=== PATIENT | female | born 1985 | race Caucasian/White ===

== ENCOUNTER 2018-12-05 15:14 | Inpatient (IN) | payer BC ==
[2018-12-05] MEDS ORDERED: Tranexamic Acid 1,000 MG in Sodium Chloride 0.9% 100 ML IV PRN (15:39)
[2018-12-05] MEDS ORDERED: Sodium Chloride 0.9% 2.5 ML Syringe FLUSH PRN (15:39)
[2018-12-05] MEDS ORDERED: Sodium Chloride 0.9% 10 ML Syringe FLUSH PRN (15:39)
[2018-12-05] MEDS ORDERED: Water For Irrigation,Sterile 1,000 ML Container IRR PRN (15:39)
[2018-12-05] MEDS ORDERED: Carboprost Tromethamine 250 MCG/1 ML Amp IM PRN (15:39)
[2018-12-05] MEDS ORDERED: Misoprostol 200 MCG Tab PO PRN (15:39)
[2018-12-05] MEDS ORDERED: Sodium Chloride 0.9% 10 ML SDV IV PRN (15:39)
[2018-12-05] MEDS ORDERED: Butorphanol 1 MG/ML SDV IVPUSH PRN (15:39)
[2018-12-05] MEDS ORDERED: Lidocaine 1% 50 ML MDV INJECT PRN (15:39)
[2018-12-05] MEDS ORDERED: Nalbuphine 10 MG/1 ML Vial IVPUSH PRN (15:39)
[2018-12-05] MEDS ORDERED: Methylergonovine 0.2 MG/1 ML Amp IM PRN (15:39)
[2018-12-05] MEDS ORDERED: Ondansetron 4 MG/2 ML SDV IVPUSH PRN (15:39)
[2018-12-05] MEDS ORDERED: Terbutaline 1 MG/ML SDV SUBCUT PRN (15:42)
[2018-12-05] MEDS ORDERED: Oxytocin/0.9 % Sodium Chloride 30 UNIT/500 ML BAG IV SCH ×2 (15:45)
[2018-12-05] MEDS: Lactated Ringers 1,000 ML IV SCH ×3 (16:09→19:55)
[2018-12-05] MEDS ORDERED: Ropivacaine HCl/PF 100 ML ONE (19:26)
--- NOTE | 2018-12-05 19:47 | PCM.PREANE ---
Preanesthetic Assessment - Anesthesia/Transfusion/Family Hx Anesthesia History: Prior Anesthesia Without Reaction Family History of Anesthesia Reaction: No Transfusion History: No Prior Transfusion(s) - Review of Systems General: No Symptoms Pulmonary: No Symptoms Cardiovascular: No Symptoms Gastrointestinal: No Symptoms Neurological: No Symptoms Other: Reports: None - Physical Assessment NPO Status Date: 12/05/18 NPO Status Time: 14:00 Height: 1.63 m Weight: 90.718 kg ASA Class: 1 Mental Status: Alert & Oriented x3 Dentition: Reports: Normal Dentition - Lab Values: Laboratory Last Values WBC 11.57 K/uL (4.0-11.0) H 12/05/18 15:55 RBC 3.62 M/uL (4.30-5.90) L 12/05/18 15:55 Hgb 10.9 g/dL (12.0-16.0) L 12/05/18 15:55 Hct 31.6 % (36.0-46.0) L 12/05/18 15:55 MCV 87.3 fL (80.0-98.0) 12/05/18 15:55 MCH 30.1 pg (27.0-32.0) 12/05/18 15:55 MCHC 34.5 g/dL (31.0-37.0) 12/05/18 15:55 RDW Std Deviation 43.6 fl (28.0-62.0) 12/05/18 15:55 RDW Coeff of Yocasta 14 % (11.0-15.0) 12/05/18 15:55 Plt Count 202 K/uL (150-400) 12/05/18 15:55 MPV 10.80 fL (7.40-12.00) 12/05/18 15:55 Nucleated RBC % 0.0 /100WBC 12/05/18 15:55 Nucleated RBCs # 0 K/uL 12/05/18 15:55 Membrane Rupture POSITIVE 12/05/18 14:55 Blood Type O POSITIVE 12/05/18 15:55 Antibody Screen NEGATIVE 12/05/18 15:55 - Allergies Allergies/Adverse Reactions: Allergies Allergy/AdvReac Type Severity Reaction Status Date / Time Sulfa (Sulfonamide Allergy Anaphylactic Verified 12/05/18 15:30 Antibiotics) Shock - Acknowledgements Anesthesia Type Planned: Epidural Pt an Appropriate Candidate for the Planned Anesthesia: Yes Alternatives and Risks of Anesthesia Discussed w Pt/Guardian: Yes Pt/Guardian Understands and Agrees with Anesthesia Plan: Yes PreAnesthesia Questionnaire HEENT History: Reports: Impaired Vision SANDER HAND History: Reports: - Infectious Disease History Infectious Disease History: Reports: Chicken Pox - Past Surgical History HEENT Surgical History: Reports: Oral Surgery - SUBSTANCE USE Smoking Status *Q: Former Smoker Recreational Drug Use History: No - HOME MEDS Home Medications: Home Meds PNV95/Ferrous Fumarate/FA [ Tablet] 1 tab PO DAILY 12/05/18 [History] - CURRENT (IN HOUSE) MEDS Current Meds: Current Medications Butorphanol Tartrate (Stadol) 1 mg IVPUSH Q1H PRN PRN Reason: Pain Carboprost Tromethamine (Hemabate Ds) 250 mcg IM ASDIRECTED PRN PRN Reason: Post Hemorrhage Tranexamic Acid 1,000 mg/ (Sodium Chloride) 110 mls @ 660 mls/hr IV ONETIME PRN PRN Reason: Bleeding Lactated Ringer's (Ringers, Lactated) 1,000 mls @ 150 mls/hr IV ASDIRECTED TYRON Last Admin: 12/05/18 19:32 Dose: 999 mls/hr Oxytocin/Sodium Chloride (Oxytocin 30 Unit/500 Ml-Ns) 30 unit in 500 mls @ 999 mls/hr IV TITRATE TYRON Oxytocin/Sodium Chloride (Oxytocin 30 Unit/500 Ml-Ns) 30 unit in 500 mls @ 2 mls/hr IV TITRATE TYRON; Protocol Last Titration: 12/05/18 17:46 Dose: 10 munits/min, 10 mls/hr Lidocaine HCl (Xylocaine 1%) 50 ml INJECT ONETIME PRN PRN Reason: Laceration repair Methylergonovine Maleate (Methergine) 0.2 mg IM ASDIRECTED PRN PRN Reason: Post Hemorrhage Misoprostol (Cytotec) 200 mcg PO ONETIME PRN PRN Reason: Post Hemorrhage Nalbuphine HCl (Nubain) 10 mg IVPUSH Q1H PRN PRN Reason: Pain (severe 7-10) Ondansetron HCl (Zofran) 4 mg IVPUSH Q6H PRN PRN Reason: Nausea/Vomiting Sodium Chloride (Saline Flush) 10 ml FLUSH ASDIRECTED PRN PRN Reason: Keep Vein Open Sodium Chloride (Saline Flush) 2.5 ml FLUSH ASDIRECTED PRN PRN Reason: Keep Vein Open Sodium Chloride (Normal Saline) 10 ml IV ASDIRECTED PRN PRN Reason: IV Use Sterile Water (Sterile Water For Irrigation) 1,000 ml IRR ASDIRECTED PRN PRN Reason: delivery Terbutaline Sulfate (Brethine) 0.25 mg SUBCUT ASDIRECTED PRN PRN Reason: Tacysystole Discontinued Medications Ropivacaine (Naropin 0.2%) Confirm Administered Dose 100 mls @ as directed .ROUTE .[facility]-MED ONE Stop: 12/05/18 19:27
--- NOTE | 2018-12-05 19:50 | PCM.PRNOTE ---
- Free Text/Narrative Note: Anes Note Patient requests epidural for L&D. Sitting position. Level L2-L3, midline approach. Sterile technique. Chloro prep to lumbar area. Epidural space easily achieved single attempt with ease using MICHELL techniue. MICHELL at 5 cm, cath threaded 4 cm with eae. Sterile dressing applied. Test 0736 3 cc 1.5% lido with epi negative Larid 10cc 0.2% ropivicaine, in slow divided doses. Pump started with same solution at 0742 at 8 cc hr with 6 cc q 20 min prn bolus. Patient reports excellent analgesia. Time with patient [id number] Brett Sampson CRNA
[2018-12-05] MEDS ORDERED: Witch Hazel Medicated Pads 40/Jar TOP PRN (22:53)
[2018-12-05] MEDS ORDERED: Ibuprofen 400 MG Tab PO PRN (22:53)
[2018-12-05] MEDS ORDERED: Bisacodyl 10 MG Supp RECTAL PRN (22:53)
[2018-12-05] MEDS ORDERED: oxyCODONE 5 MG Tab PO PRN (22:53)
[2018-12-05] MEDS ORDERED: Benzocaine/Menthol 20%-0.5% Spray 78 GM Cannister TOP PRN (22:53)
[2018-12-05] MEDS ORDERED: Lanolin 100% Cream 7 GM Tube TOP PRN (22:53)
[2018-12-05] MEDS ORDERED: Acetaminophen 500 MG Tab PO PRN (22:53)
--- NOTE | 2018-12-05 22:58 | PCM.DEL ---
L & D Note - General Info Date of Service: 12/05/18 Mother's Due Date: 12/10/18 - Delivery Note Labor: Augmented by Oxytocin Delivery Outcome: Livebirth Presentation: Right Occiput Anterior (KINZA) Nuchal Cord: None Anesthesia Type: Epidural Amniotic Fluid Description: Clear Episiotomy Type: None Laceration: 1st Degree Suture type: Other (monocryl 2.0) Placenta: Intact Cord: 3 Vessels Estimated Blood Loss: 300 Resuscitation Needed: No Score 1 min: 8 Score 5 min: 9 Delivery Comments (Free Text/Narrative):: Live male delivered 2130 , 8/9 , weight pending - General Info Date of Service: 12/05/18 - Patient Data Weight - Most Recent: 90.718 kg Lab Results Last 24 Hours: Laboratory Results - last 24 hr 12/05/18 12/05/18 12/05/18 Range/Units 14:55 15:55 15:55 WBC 11.57 H (4.0-11.0) K/uL RBC 3.62 L (4.30-5.90) M/uL Hgb 10.9 L (12.0-16.0) g/dL Hct 31.6 L (36.0-46.0) % MCV 87.3 (80.0-98.0) fL MCH 30.1 (27.0-32.0) pg MCHC 34.5 (31.0-37.0) g/dL RDW Std Deviation 43.6 (28.0-62.0) fl RDW Coeff of Yocasta 14 (11.0-15.0) % Plt Count 202 (150-400) K/uL MPV 10.80 (7.40-12.00) fL Nucleated RBC % 0.0 /100WBC Nucleated RBCs # 0 K/uL Membrane Rupture POSITIVE Blood Type O POSITIVE Antibody Screen NEGATIVE Med Orders - Current: Current Medications Butorphanol Tartrate (Stadol) 1 mg IVPUSH Q1H PRN PRN Reason: Pain Carboprost Tromethamine (Hemabate Ds) 250 mcg IM ASDIRECTED PRN PRN Reason: Post Hemorrhage Tranexamic Acid 1,000 mg/ (Sodium Chloride) 110 mls @ 660 mls/hr IV ONETIME PRN PRN Reason: Bleeding Lactated Ringer's (Ringers, Lactated) 1,000 mls @ 150 mls/hr IV ASDIRECTED TYRON Last Admin: 12/05/18 19:55 Dose: 150 mls/hr Oxytocin/Sodium Chloride (Oxytocin 30 Unit/500 Ml-Ns) 30 unit in 500 mls @ 999 mls/hr IV TITRATE TYRON Last Admin: 12/05/18 22:31 Dose: 999 mls/hr Oxytocin/Sodium Chloride (Oxytocin 30 Unit/500 Ml-Ns) 30 unit in 500 mls @ 2 mls/hr IV TITRATE TYRON; Protocol Last Titration: 12/05/18 17:46 Dose: 10 munits/min, 10 mls/hr Lidocaine HCl (Xylocaine 1%) 50 ml INJECT ONETIME PRN PRN Reason: Laceration repair Methylergonovine Maleate (Methergine) 0.2 mg IM ASDIRECTED PRN PRN Reason: Post Hemorrhage Misoprostol (Cytotec) 200 mcg PO ONETIME PRN PRN Reason: Post Hemorrhage Nalbuphine HCl (Nubain) 10 mg IVPUSH Q1H PRN PRN Reason: Pain (severe 7-10) Ondansetron HCl (Zofran) 4 mg IVPUSH Q6H PRN PRN Reason: Nausea/Vomiting Sodium Chloride (Saline Flush) 10 ml FLUSH ASDIRECTED PRN PRN Reason: Keep Vein Open Sodium Chloride (Saline Flush) 2.5 ml FLUSH ASDIRECTED PRN PRN Reason: Keep Vein Open Sodium Chloride (Normal Saline) 10 ml IV ASDIRECTED PRN PRN Reason: IV Use Sterile Water (Sterile Water For Irrigation) 1,000 ml IRR ASDIRECTED PRN PRN Reason: delivery Last Admin: 12/05/18 22:42 Dose: 1,000 ml Terbutaline Sulfate (Brethine) 0.25 mg SUBCUT ASDIRECTED PRN PRN Reason: Tacysystole Discontinued Medications Ropivacaine (Naropin 0.2%) Confirm Administered Dose 100 mls @ as directed .ROUTE .STK-MED ONE Stop: 12/05/18 19:27 - Problem List & Annotations (1) Vaginal delivery SNOMED Code(s): 635597905 Code(s): O80 - ENCOUNTER FOR FULL-TERM UNCOMPLICATED DELIVERY Status: Acute Current Visit: Yes - Problem List Review Problem List Initiated/Reviewed/Updated: Yes - My Orders Last 24 Hours: My Active Orders 12/05/18 15:30 Non Stress Test [RC] PER UNIT ROUTINE Up ad [place] [RC] ASDIRECTED Vaginal Exam [RC] Click to Edit Vital Signs [RC] PER UNIT ROUTINE 12/05/18 15:39 Butorphanol [Stadol] 1 mg IVPUSH Q1H PRN Carboprost Tromethamine [Hemabate DS] 250 mcg IM ASDIRECTED PRN Lidocaine 1% [Xylocaine 1%] 50 ml INJECT ONETIME PRN Methylergonovine [Methergine] 0.2 mg IM ASDIRECTED PRN Nalbuphine [Nubain] 10 mg IVPUSH Q1H PRN Ondansetron [Zofran] 4 mg IVPUSH Q6H PRN Sodium Chloride 0.9% [Normal Saline] 10 ml IV ASDIRECTED PRN Sodium Chloride 0.9% [Saline Flush] 10 ml FLUSH ASDIRECTED PRN Sodium Chloride 0.9% [Saline Flush] 2.5 ml FLUSH ASDIRECTED PRN Tranexamic Acid [Cyklokapron] 1,000 mg Sodium Chloride 0.9% [Normal Saline] 100 ml IV ONETIME Water For Irrigation,Sterile [Sterile Water for Irrigation] 1,000 ml IRR ASDIRECTED PRN miSOPROStol [Cytotec] 200 mcg PO ONETIME PRN 12/05/18 15:40 Patient Status [ADT] Routine Heart Tones [RC] CONTINUOUS Non Stress Test [RC] PER UNIT ROUTINE May Shower [RC] ASDIRECTED Notify Provider [RC] PRN Peripheral IV Insertion Adult [OM.PC] Routine 12/05/18 15:42 Bedrest Bathroom Privileges [RC] ASDIRECTED Communication Order [RC] ASDIRECTED Communication Order [RC] ASDIRECTED Notify Provider [RC] PRN Oxygen Therapy [RC] ASDIRECTED Vaginal Exam [RC] PRN Vital Signs [RC] PER UNIT ROUTINE Terbutaline [Brethine] 0.25 mg SUBCUT ASDIRECTED PRN 12/05/18 15:45 Lactated Ringers [Ringers, Lactated] 1,000 ml IV ASDIRECTED Oxytocin/0.9 % Sodium Chloride [Oxytocin 30 Unit/500 ML-NS] 30 unit in 500 ml IV TITRATE Oxytocin/0.9 % Sodium Chloride [Oxytocin 30 Unit/500 ML-NS] 30 unit in 500 ml IV TITRATE Medication Administration Instruction [OM.PC] Q3H 12/05/18 22:53 Patient Status [ADT] Routine May Shower [RC] ASDIRECTED Up ad [place] [RC] ASDIRECTED Vital Signs [RC] PER UNIT ROUTINE BLOOD GAS ARTERIAL UMBILICAL [BG] Urgent BLOOD GAS VENOUS UMBILICAL [BG] Urgent Acetaminophen [Tylenol Extra Strength] 1,000 mg PO Q4H PRN Acetaminophen [Tylenol Extra Strength] 500 mg PO Q4H PRN Benzocaine/Menthol [Dermoplast Pain Relief 20%-0.5% [place]] 78 gm TOP ASDIRECTED PRN Bisacodyl [Dulcolax] 10 mg RECTAL ONETIME PRN Docusate Sodium [Colace] 100 mg PO BID PRN Ibuprofen [Motrin] 400 mg PO Q4H PRN Ibuprofen [Motrin] 800 mg PO Q6H PRN Lanolin [Lansinoh HPA] See Dose Instructions TOP ASDIRECTED PRN Witch Zamzam [Tucks] 1 pad TOP ASDIRECTED PRN oxyCODONE 5 mg PO Q2H PRN Assess Lochia [WOMSER] Per Unit Routine Assess Uterine Involution [WOMSER] Per Unit Routine Peripheral IV Discontinue [OM.PC] Routine Resuscitation Status Routine 12/06/18 05:11 HEMOGLOBIN/HEMATOCRIT,HH [HEME] Timed
[2018-12-06] MEDS: Acetaminophen 500 MG Tab PO PRN ×4 (00:01→22:14)
[2018-12-06] MEDS: Docusate Sodium 100 MG Cap PO PRN ×2 (00:02→12:29)
--- NOTE | 2018-12-06 00:42 | OR ---
SURGEON: LESLI STARK DATE OF PROCEDURE: 12/05/2018 PREOPERATIVE DIAGNOSIS: A 33-year-old G3, P2-0-0-2, at 39 weeks 2 days with rupture of membranes. POSTOPERATIVE DIAGNOSIS: A 33-year-old G3, P2-0-0-2, at 39 weeks 2 days with rupture of membranes with repair of a first-degree vaginal laceration. ANESTHESIA: Epidural. ESTIMATED BLOOD LOSS: 300. PROCEDURES: Normal spontaneous vaginal delivery with repair of a first-degree laceration. FINDINGS: A live male delivered at 2231 hours, scores 8 and 9, weight: 3490g BRIEF HISTORY ABOUT THE PATIENT: A 33-year-old G3, P2-0-0-2, 39 weeks 2 days, came in complaining of leakage of fluid. She was ruled in for rupture. She was 4 cm dilated. She was found to have very minimal contractions. Pitocin was started. The patient then made change and became fully dilated. She was encouraged to push. DESCRIPTION OF PROCEDURE: With good pushing effort, she delivered the head. Subsequently, by the anterior and posterior shoulder, the body of the infant was delivered, and delayed cord clamping was observed. Cord was clamped and cut. IV Pitocin was running. Placenta was delivered via controlled cord traction. Cord blood gases were obtained. Perineum was inspected. A first-degree laceration was noted, which was repaired with 2-0 Monocryl. All instrument and pad counts were correct x2. The patient tolerated the procedure well and was left in the Labor and Delivery room in stable condition. RAMON LUNDY /[id number] LILIAN
[2018-12-06] MEDS: Ibuprofen 800 MG Tab PO PRN ×4 (06:12→19:51)
--- NOTE | 2018-12-06 07:21 | PCM.PNPP ---
- General Info Date of Service: 12/06/18 Subjective Update: 33yo P3 s/p PPD1 , stable , Normal lochia , , denies any complains Functional Status: Reports: Pain Controlled, Tolerating Diet, Ambulating, Urinating - Review of Systems General: Reports: No Symptoms HEENT: Reports: No Symptoms Pulmonary: Reports: No Symptoms Cardiovascular: Reports: No Symptoms Gastrointestinal: Reports: No Symptoms Genitourinary: Reports: No Symptoms Musculoskeletal: Reports: No Symptoms Skin: Reports: No Symptoms Neurological: Reports: No Symptoms Psychiatric: Reports: No Symptoms - General Info Date of Service: 12/06/18 - Patient Data Vital Signs - Most Recent: Last Vital Signs Temp 36.1 C 12/06/18 04:05 Pulse 80 12/06/18 04:05 Resp 16 12/06/18 04:05 BP 117/68 12/06/18 04:05 Pulse Ox 95 12/06/18 04:05 Weight - Most Recent: 90.718 kg I&O - Last 24 Hours: Intake & Output 12/05/18 12/06/18 12/06/18 22:59 06:59 14:59 Output Total 30 Balance -30 Lab Results - Last 24 Hours: Laboratory Results - last 24 hr 12/05/18 12/05/18 12/05/18 Range/Units 14:55 15:55 15:55 WBC 11.57 H (4.0-11.0) K/uL RBC 3.62 L (4.30-5.90) M/uL Hgb 10.9 L (12.0-16.0) g/dL Hct 31.6 L (36.0-46.0) % MCV 87.3 (80.0-98.0) fL MCH 30.1 (27.0-32.0) pg MCHC 34.5 (31.0-37.0) g/dL RDW Std Deviation 43.6 (28.0-62.0) fl RDW Coeff of Yocasta 14 (11.0-15.0) % Plt Count 202 (150-400) K/uL MPV 10.80 (7.40-12.00) fL Nucleated RBC % 0.0 /100WBC Nucleated RBCs # 0 K/uL Cord ABG pH (7.18-7.38) Cord ABG Base Excess (-10--2) Cord VBG pH (7.25-7.45) Cord VBG Base Excess (-10--2) Membrane Rupture POSITIVE Blood Type O POSITIVE Antibody Screen NEGATIVE 12/05/18 12/06/18 Range/Units 22:31 06:00 WBC (4.0-11.0) K/uL RBC (4.30-5.90) M/uL Hgb 11.4 L (12.0-16.0) g/dL Hct 33.3 L (36.0-46.0) % MCV (80.0-98.0) fL MCH (27.0-32.0) pg MCHC (31.0-37.0) g/dL RDW Std Deviation (28.0-62.0) fl RDW Coeff of Yocasta (11.0-15.0) % Plt Count (150-400) K/uL MPV (7.40-12.00) fL Nucleated RBC % /100WBC Nucleated RBCs # K/uL Cord ABG pH 7.229 (7.18-7.38) Cord ABG Base Excess -5 (-10--2) Cord VBG pH 7.376 (7.25-7.45) Cord VBG Base Excess -4 (-10--2) Membrane Rupture Blood Type Antibody Screen Med Orders - Current: Current Medications Acetaminophen (Tylenol Extra Strength) 500 mg PO Q4H PRN PRN Reason: Pain Acetaminophen (Tylenol Extra Strength) 1,000 mg PO Q4H PRN PRN Reason: Pain Last Admin: 12/06/18 00:01 Dose: 1,000 mg Benzocaine/Menthol (Dermoplast Pain Relief 20%-0.5% [place]) 78 gm TOP ASDIRECTED PRN PRN Reason: Perineal Comfort Measure Last Admin: 12/06/18 00:03 Dose: 78 gm Bisacodyl (Dulcolax) 10 mg RECTAL ONETIME PRN PRN Reason: Constipation Butorphanol Tartrate (Stadol) 1 mg IVPUSH Q1H PRN PRN Reason: Pain Carboprost Tromethamine (Hemabate Ds) 250 mcg IM ASDIRECTED PRN PRN Reason: Post Hemorrhage Docusate Sodium (Colace) 100 mg PO BID PRN PRN Reason: Constipation Last Admin: 12/06/18 00:02 Dose: 100 mg Emollient Ointment (Lansinoh Hpa) 0 gm TOP ASDIRECTED PRN PRN Reason: Sore Nipples Last Admin: 12/06/18 00:02 Dose: 7 gm Tranexamic Acid 1,000 mg/ (Sodium Chloride) 110 mls @ 660 mls/hr IV ONETIME PRN PRN Reason: Bleeding Lactated Ringer's (Ringers, Lactated) 1,000 mls @ 150 mls/hr IV ASDIRECTED TYRON Last Admin: 12/05/18 19:55 Dose: 150 mls/hr Oxytocin/Sodium Chloride (Oxytocin 30 Unit/500 Ml-Ns) 30 unit in 500 mls @ 999 mls/hr IV TITRATE TYRON Last Admin: 12/05/18 22:31 Dose: 999 mls/hr Oxytocin/Sodium Chloride (Oxytocin 30 Unit/500 Ml-Ns) 30 unit in 500 mls @ 2 mls/hr IV TITRATE TYRON; Protocol Last Titration: 12/05/18 17:46 Dose: 10 munits/min, 10 mls/hr Ibuprofen (Motrin) 400 mg PO Q4H PRN PRN Reason: Pain Ibuprofen (Motrin) 800 mg PO Q6H PRN PRN Reason: Pain Last Admin: 12/06/18 06:12 Dose: 800 mg Lidocaine HCl (Xylocaine 1%) 50 ml INJECT ONETIME PRN PRN Reason: Laceration repair Methylergonovine Maleate (Methergine) 0.2 mg IM ASDIRECTED PRN PRN Reason: Post Hemorrhage Misoprostol (Cytotec) 200 mcg PO ONETIME PRN PRN Reason: Post Hemorrhage Nalbuphine HCl (Nubain) 10 mg IVPUSH Q1H PRN PRN Reason: Pain (severe 7-10) Ondansetron HCl (Zofran) 4 mg IVPUSH Q6H PRN PRN Reason: Nausea/Vomiting Oxycodone HCl (Oxycodone) 5 mg PO Q2H PRN PRN Reason: Pain Sodium Chloride (Saline Flush) 10 ml FLUSH ASDIRECTED PRN PRN Reason: Keep Vein Open Sodium Chloride (Saline Flush) 2.5 ml FLUSH ASDIRECTED PRN PRN Reason: Keep Vein Open Sodium Chloride (Normal Saline) 10 ml IV ASDIRECTED PRN PRN Reason: IV Use Sterile Water (Sterile Water For Irrigation) 1,000 ml IRR ASDIRECTED PRN PRN Reason: delivery Last Admin: 12/05/18 22:42 Dose: 1,000 ml Terbutaline Sulfate (Brethine) 0.25 mg SUBCUT ASDIRECTED PRN PRN Reason: Tacysystole Witch Zamzam (Tucks) 1 pad TOP ASDIRECTED PRN PRN Reason: comfort care Last Admin: 12/06/18 00:03 Dose: 1 pad Discontinued Medications Ropivacaine (Naropin 0.2%) Confirm Administered Dose 100 mls @ as directed .ROUTE .STK-MED ONE Stop: 12/05/18 19:27 - Recovery Exam Fundal Tone: Firm Fundal Level: At Umbilicus Fundal Placement: Midline Lochia Amount: Scant, Small Lochia Color: Rubra/Red Perineum Description: Other (see below) Other Perinuem Description: First degree tear Episiotomy/Laceration: Approximated Bladder Status: Voiding Urinary Elimination: Voided - Exam General: Alert HEENT: Pupils Equal Neck: Supple Lungs: Clear to Auscultation Cardiovascular: Regular Rate, Tachycardia GI/Abdominal Exam: Normal Bowel Sounds Extremities: Normal Inspection Neurological: No New Focal Deficit Psy/Mental Status: Alert - Problem List & Annotations (1) Vaginal delivery SNOMED Code(s): 309084993 Code(s): O80 - ENCOUNTER FOR FULL-TERM UNCOMPLICATED DELIVERY Status: Acute Current Visit: Yes - Problem List Review Problem List Initiated/Reviewed/Updated: Yes - My Orders Last 24 Hours: My Active Orders 12/05/18 15:30 Non Stress Test [RC] PER UNIT ROUTINE Up ad [place] [RC] ASDIRECTED Vaginal Exam [RC] Click to Edit Vital Signs [RC] PER UNIT ROUTINE 12/05/18 15:39 Butorphanol [Stadol] 1 mg IVPUSH Q1H PRN Carboprost Tromethamine [Hemabate DS] 250 mcg IM ASDIRECTED PRN Lidocaine 1% [Xylocaine 1%] 50 ml INJECT ONETIME PRN Methylergonovine [Methergine] 0.2 mg IM ASDIRECTED PRN Nalbuphine [Nubain] 10 mg IVPUSH Q1H PRN Ondansetron [Zofran] 4 mg IVPUSH Q6H PRN Sodium Chloride 0.9% [Normal Saline] 10 ml IV ASDIRECTED PRN Sodium Chloride 0.9% [Saline Flush] 10 ml FLUSH ASDIRECTED PRN Sodium Chloride 0.9% [Saline Flush] 2.5 ml FLUSH ASDIRECTED PRN Tranexamic Acid [Cyklokapron] 1,000 mg Sodium Chloride 0.9% [Normal Saline] 100 ml IV ONETIME Water For Irrigation,Sterile [Sterile Water for Irrigation] 1,000 ml IRR ASDIRECTED PRN miSOPROStol [Cytotec] 200 mcg PO ONETIME PRN 12/05/18 15:40 Patient Status [ADT] Routine Non Stress Test [RC] PER UNIT ROUTINE Notify Provider [RC] PRN Peripheral IV Insertion Adult [OM.PC] Routine 12/05/18 15:42 Bedrest Bathroom Privileges [RC] ASDIRECTED Vaginal Exam [RC] PRN Vital Signs [RC] PER UNIT ROUTINE Terbutaline [Brethine] 0.25 mg SUBCUT ASDIRECTED PRN 12/05/18 15:45 Lactated Ringers [Ringers, Lactated] 1,000 ml IV ASDIRECTED Oxytocin/0.9 % Sodium Chloride [Oxytocin 30 Unit/500 ML-NS] 30 unit in 500 ml IV TITRATE Oxytocin/0.9 % Sodium Chloride [Oxytocin 30 Unit/500 ML-NS] 30 unit in 500 ml IV TITRATE Medication Administration Instruction [OM.PC] Q3H 12/05/18 22:53 Patient Status [ADT] Routine May Shower [RC] ASDIRECTED Acetaminophen [Tylenol Extra Strength] 1,000 mg PO Q4H PRN Acetaminophen [Tylenol Extra Strength] 500 mg PO Q4H PRN Benzocaine/Menthol [Dermoplast Pain Relief 20%-0.5% [place]] 78 gm TOP ASDIRECTED PRN Bisacodyl [Dulcolax] 10 mg RECTAL ONETIME PRN Docusate Sodium [Colace] 100 mg PO BID PRN Ibuprofen [Motrin] 400 mg PO Q4H PRN Ibuprofen [Motrin] 800 mg PO Q6H PRN Lanolin [Lansinoh HPA] See Dose Instructions TOP ASDIRECTED PRN Witch Zamzam [Tucks] 1 pad TOP ASDIRECTED PRN oxyCODONE 5 mg PO Q2H PRN Assess Lochia [WOMSER] Per Unit Routine Assess Uterine Involution [WOMSER] Per Unit Routine Peripheral IV Discontinue [OM.PC] Routine Resuscitation Status Routine 12/06/18 Breakfast Regular Diet [DIET] - Assessment Assessment:: 33yo P3 s/p PPD1 stable , Normal lochia , - Plan Plan:: Routine
[2018-12-06] MEDS ORDERED: Acetaminophen 500 MG Tab ONE (08:24)
--- NOTE | 2018-12-06 09:56 | PCM48HPAN ---
Post Anesthesia Note - EVALUATION WITHIN 48HRS OF ANESTHETIC Vital Signs in Normal Range: Yes Patient Participated in Evaluation: Yes Respiratory Function Stable: Yes Airway Patent: Yes Cardiovascular Function Stable: Yes Hydration Status Stable: Yes Pain Control Satisfactory: Yes Nausea and Vomiting Control Satisfactory: Yes Mental Status Recovered: Yes Resp Rate: 18 - COMMENTS/OBSERVATIONS Free Text/Narrative:: no anesthesia problems
[2018-12-07] MEDS: Ibuprofen 800 MG Tab PO PRN ×2 (02:09→08:56)
--- NOTE | 2018-12-07 09:06 | PCM.PNPP ---
- General Info Date of Service: 12/07/18 Subjective Update: 33yo P3 s/p PPD2 , stable , Normal lochia , , denies any complains Functional Status: Reports: Pain Controlled, Tolerating Diet, Ambulating, Urinating - Review of Systems General: Reports: No Symptoms HEENT: Reports: No Symptoms Pulmonary: Reports: No Symptoms Cardiovascular: Reports: No Symptoms Gastrointestinal: Reports: No Symptoms Genitourinary: Reports: No Symptoms Musculoskeletal: Reports: No Symptoms Skin: Reports: No Symptoms Neurological: Reports: No Symptoms Psychiatric: Reports: No Symptoms - General Info Date of Service: 12/07/18 - Patient Data Vital Signs - Most Recent: Last Vital Signs Temp 36.4 C 12/07/18 07:42 Pulse 60 12/07/18 07:42 Resp 18 12/07/18 07:42 BP 118/66 12/07/18 07:42 Pulse Ox 97 12/07/18 07:42 Weight - Most Recent: 90.718 kg Med Orders - Current: Current Medications Acetaminophen (Tylenol Extra Strength) 500 mg PO Q4H PRN PRN Reason: Pain Acetaminophen (Tylenol Extra Strength) 1,000 mg PO Q4H PRN PRN Reason: Pain Last Admin: 12/06/18 22:14 Dose: 1,000 mg Benzocaine/Menthol (Dermoplast Pain Relief 20%-0.5% [place]) 78 gm TOP ASDIRECTED PRN PRN Reason: Perineal Comfort Measure Last Admin: 12/06/18 00:03 Dose: 78 gm Bisacodyl (Dulcolax) 10 mg RECTAL ONETIME PRN PRN Reason: Constipation Butorphanol Tartrate (Stadol) 1 mg IVPUSH Q1H PRN PRN Reason: Pain Carboprost Tromethamine (Hemabate Ds) 250 mcg IM ASDIRECTED PRN PRN Reason: Post Hemorrhage Docusate Sodium (Colace) 100 mg PO BID PRN PRN Reason: Constipation Last Admin: 12/06/18 12:29 Dose: 100 mg Emollient Ointment (Lansinoh Hpa) 0 gm TOP ASDIRECTED PRN PRN Reason: Sore Nipples Last Admin: 12/06/18 00:02 Dose: 7 gm Tranexamic Acid 1,000 mg/ (Sodium Chloride) 110 mls @ 660 mls/hr IV ONETIME PRN PRN Reason: Bleeding Lactated Ringer's (Ringers, Lactated) 1,000 mls @ 150 mls/hr IV ASDIRECTED TYRON Last Admin: 12/05/18 19:55 Dose: 150 mls/hr Oxytocin/Sodium Chloride (Oxytocin 30 Unit/500 Ml-Ns) 30 unit in 500 mls @ 999 mls/hr IV TITRATE [facility] Last Admin: 12/05/18 22:31 Dose: 999 mls/hr Oxytocin/Sodium Chloride (Oxytocin 30 Unit/500 Ml-Ns) 30 unit in 500 mls @ 2 mls/hr IV TITRATE TYRON; Protocol Last Titration: 12/05/18 17:46 Dose: 10 munits/min, 10 mls/hr Ibuprofen (Motrin) 400 mg PO Q4H PRN PRN Reason: Pain Ibuprofen (Motrin) 800 mg PO Q6H PRN PRN Reason: Pain Last Admin: 12/07/18 08:56 Dose: 800 mg Lidocaine HCl (Xylocaine 1%) 50 ml INJECT ONETIME PRN PRN Reason: Laceration repair Methylergonovine Maleate (Methergine) 0.2 mg IM ASDIRECTED PRN PRN Reason: Post Hemorrhage Misoprostol (Cytotec) 200 mcg PO ONETIME PRN PRN Reason: Post Hemorrhage Nalbuphine HCl (Nubain) 10 mg IVPUSH Q1H PRN PRN Reason: Pain (severe 7-10) Ondansetron HCl (Zofran) 4 mg IVPUSH Q6H PRN PRN Reason: Nausea/Vomiting Oxycodone HCl (Oxycodone) 5 mg PO Q2H PRN PRN Reason: Pain Sodium Chloride (Saline Flush) 10 ml FLUSH ASDIRECTED PRN PRN Reason: Keep Vein Open Sodium Chloride (Saline Flush) 2.5 ml FLUSH ASDIRECTED PRN PRN Reason: Keep Vein Open Sodium Chloride (Normal Saline) 10 ml IV ASDIRECTED PRN PRN Reason: IV Use Sterile Water (Sterile Water For Irrigation) 1,000 ml IRR ASDIRECTED PRN PRN Reason: delivery Last Admin: 12/05/18 22:42 Dose: 1,000 ml Terbutaline Sulfate (Brethine) 0.25 mg SUBCUT ASDIRECTED PRN PRN Reason: Tacysystole Witfreda Wyman (Tucks) 1 pad TOP ASDIRECTED PRN PRN Reason: comfort care Last Admin: 12/06/18 00:03 Dose: 1 pad Discontinued Medications Acetaminophen (Tylenol Extra Strength) Confirm Administered Dose 500 mg .ROUTE .STK-MED ONE Stop: 12/06/18 08:25 Ropivacaine (Naropin 0.2%) Confirm Administered Dose 100 mls @ as directed .ROUTE .STK-MED ONE Stop: 12/05/18 19:27 Last Admin: 12/06/18 21:35 Dose: Not Given - Recovery Exam Fundal Tone: Firm Fundal Level: 2 Fingerbreadths Below Umbilicus Fundal Placement: Midline Lochia Amount: None Lochia Color: Rubra/Red Perineum Description: Other (see below) Other Perinuem Description: first degree laceration Episiotomy/Laceration: Approximated Bladder Status: Voiding Urinary Elimination: Voided - Exam General: Alert HEENT: Pupils Equal Neck: Supple Lungs: Clear to Auscultation Cardiovascular: Regular Rate, Regular Rhythm GI/Abdominal Exam: Normal Bowel Sounds Extremities: Normal Inspection Neurological: No New Focal Deficit Psy/Mental Status: Alert - Problem List & Annotations (1) Vaginal delivery SNOMED Code(s): 530063971 Code(s): O80 - ENCOUNTER FOR FULL-TERM UNCOMPLICATED DELIVERY Status: Acute Current Visit: Yes - Problem List Review Problem List Initiated/Reviewed/Updated: Yes - Assessment Assessment:: 33yo P3 s/p PPD2 stable , Normal lochia , - Plan Plan:: Discharge home
== END 2018-12-07 11:10 | disposition home or self-care (01) | DRG 560 ==
LOC: MW.OBCHECK 15:14 → MW.OB 15:15 → MW.OBCHECK 15:39 → MW.OB 15:40 → OBSVTOIN 22:31 → MW.OB 12-06 03:03
PROVIDERS: ADMIT Obstetrics & Gynecology; ATTEND Obstetrics & Gynecology
PROC: 10E0XZZ Delivery of Products of Conception, External Approach (ICD-10-PCS; principal; 2018-12-05)
PROC: 0HQ9XZZ Repair Perineum Skin, External Approach (ICD-10-PCS; 2018-12-05)
PROC: 3E0R3BZ Introduction of Anesthetic Agent into Spinal Canal, Percutaneous Approach (ICD-10-PCS; 2018-12-05)
PROC: 00HU33Z Insertion of Infusion Device into Spinal Canal, Percutaneous Approach (ICD-10-PCS; 2018-12-05)
DX: O70.0 First degree perineal laceration during delivery (principal); Z37.0 Single live birth; Z87.891 Personal history of nicotine dependence; Z3A.39 39 weeks gestation of pregnancy
CPT/HCPCS: 36415; 51702; 59025; 82803; 84112; 85014; 85018; 85027; 86850; 86900; 86901; A9270-GY; J2590; J7120

== ENCOUNTER 2018-12-19 10:37 | Day surgery (SDC) | payer BC ==
--- NOTE | 2018-12-19 11:14 | PCM.PREANE ---
Preanesthetic Assessment - Anesthesia/Transfusion/Family Hx Anesthesia History: No Prior Anesthesia Family History of Anesthesia Reaction: No Transfusion History: No Prior Transfusion(s) Intubation History: Unknown - Review of Systems General: No Symptoms Pulmonary: No Symptoms Cardiovascular: No Symptoms Gastrointestinal: No Symptoms Neurological: No Symptoms Other: Reports: None - Physical Assessment Height: 5 ft 4 in Weight: 85.729 kg ASA Class: 2 Mental Status: Alert & Oriented x3 Airway Class: Mallampati = 2 Dentition: Reports: Normal Dentition Thyro-Mental Finger Breadths: 3 Mouth Opening Finger Breadths: 3 ROM/Head Extension: Full Lungs: Clear to Auscultation, Normal Respiratory Effort Cardiovascular: Regular Rate, Regular Rhythm - Allergies Allergies/Adverse Reactions: Allergies Allergy/AdvReac Type Severity Reaction Status Date / Time Sulfa (Sulfonamide Allergy Anaphylactic Verified 12/18/18 15:39 Antibiotics) Shock - Anesthesia Plan Pre-Op Medication Ordered: None - Acknowledgements Anesthesia Type Planned: General Anesthesia Pt an Appropriate Candidate for the Planned Anesthesia: Yes Alternatives and Risks of Anesthesia Discussed w Pt/Guardian: Yes Pt/Guardian Understands and Agrees with Anesthesia Plan: Yes PreAnesthesia Questionnaire HEENT History: Reports: Other (See Below) Other HEENT History: wears glasses Cardiovascular History: Reports: None Respiratory History: Reports: None Gastrointestinal History: Reports: None Genitourinary History: Reports: None CERTIFIED PERSONAL CHEF History: Reports: (delivered baby on 12/05/18- heavy bleeding Hg droppd from 11.1 to 9.4) Musculoskeletal History: Reports: None Neurological History: Reports: None Psychiatric History: Reports: None Endocrine/Metabolic History: Reports: Obesity/BMI 30+ Hematologic History: Reports: None Immunologic History: Reports: None Oncologic (Cancer) History: Reports: None Dermatologic History: Reports: None - Infectious Disease History Infectious Disease History: Reports: Chicken Pox - Past Surgical History Head Surgeries/Procedures: Reports: None HEENT Surgical History: Reports: None Cardiovascular Surgical History: Reports: None Respiratory Surgical History: Reports: None GI Surgical History: Reports: None Female Surgical History: Reports: None Endocrine Surgical History: Reports: None Neurological Surgical History: Reports: None Musculoskeletal Surgical History: Reports: None Oncologic Surgical History: Reports: None Dermatological Surgical History: Reports: None - SUBSTANCE USE Smoking Status *Q: Former Smoker - HOME MEDS Home Medications: Home Meds . [No Known Home Meds] 12/18/18 [History]
[2018-12-19] MEDS ORDERED: Lactated Ringers 1,000 ML IV SCH (11:30)
[2018-12-19] MEDS ORDERED: ceFAZolin 2 GM in Premix Bag 1 BAG IV ONE (11:40)
[2018-12-19] MEDS ORDERED: Propofol 200 MG/20 ML SDV ONE (12:12)
[2018-12-19] MEDS ORDERED: Lidocaine 2% 5 ML SDV ONE (12:12)
[2018-12-19] MEDS ORDERED: Ondansetron 4 MG/2 ML SDV ONE (12:12)
[2018-12-19] MEDS ORDERED: Dexamethasone 4 MG/ML 5 ML MDV ONE (12:12)
[2018-12-19] MEDS ORDERED: fentaNYL 100 MCG/2 ML SDV ONE (12:12)
[2018-12-19] MEDS ORDERED: Misoprostol 200 MCG Tab ONE (12:16)
[2018-12-19] MEDS ORDERED: ceFAZolin 1 GM Vial ONE (12:36)
[2018-12-19] MEDS ORDERED: Sodium Chloride 0.9% 20 ML ONE (12:36)
--- NOTE | 2018-12-19 12:56 | PCM.OPNOTE ---
- General Post-Op/Procedure Note Date of Surgery/Procedure: 12/19/18 Operative Procedure(s): Suction D&C Findings: Retained products of conception Pre Op Diagnosis: Delayed hemorrhage. retained products of conception Post-Op Diagnosis: Same Anesthesia Technique: General LMA Primary Surgeon: Cathy Tai Fluid Replacement, Intraop: 600 EBL in mLs: 200 Complications: none known Condition: Good Free Text/Narrative:: Dictation [id number]
--- NOTE | 2018-12-19 15:58 | OR ---
SURGEON: Cathy Tai M.D. DATE OF PROCEDURE: 12/19/2018 PREOPERATIVE DIAGNOSES: 1. Delayed hemorrhage. 2. Retained products of conception. POSTOPERATIVE DIAGNOSES: 1. Delayed hemorrhage. 2. Retained products of conception. PROCEDURE: Suction D and C. ANESTHESIA: General LMA. PRIMARY SURGEON: Cathy Tai MD. FLUIDS: 600 mL of crystalloid. ESTIMATED BLOOD LOSS: 200 mL. COMPLICATIONS: None known. FINDINGS: Retained products of conception. DISPOSITION: The patient to PACU, stable. PROCEDURE DETAILS: Florencia is a 33-year-old female, who underwent a spontaneous vaginal delivery on 12/05/2018. Subsequently, over this past weekend, she began having heavy vaginal bleeding, at times going through a pad an hour. The bleeding then did lighten. However, it has been intermittently persistent. Therefore, she was evaluated in clinic and found that her hemoglobin had dropped 2 points to 9.1. She appears somewhat pale. She just not really is feeling very well overall. Sonogram was performed which revealed a 40 mm endometrial thickness consistent with some increased vascularity and significant for potential retained products of conception. Given clinical findings and ultrasound finding, we have advised proceeding with surgical intervention in the form of suction D and C. She voiced understanding. Proper consent obtained. The patient was taken to the operating room and underwent general LMA, was placed in modified dorsal lithotomy position, was prepped and draped in the usual sterile fashion. A time-out was performed. Bladder was drained. Speculum was introduced in the vagina. Anterior lip of the cervix was grasped with an Allis clamp. Cervix easily dilated to 10 mm using a 10 mm curved curette. This was introduced in the uterine cavity. With the suction was able to evacuate the uterine cavity of what appears to be remnant of placental fragments. Gentle sharp curettage was then also performed. Once the uterine cavity was felt to be satisfactorily evacuated, all instruments removed from the vagina. Specimen to Pathology. Uterus remained firm. Hemostasis appeared evident. Sponge and instrument count was correct x2. The patient has tolerated the procedure well overall. She will go to PACU in stable condition, specimen to Pathology. HARRY / KAMRON /[id number]
== END 2018-12-19 14:24 | disposition home or self-care (01) ==
LOC: MW.SDS 10:37
PROVIDERS: ATTEND Obstetrics & Gynecology
DX: O72.2 Delayed and secondary postpartum hemorrhage (principal); Z88.2 Allergy status to sulfonamides; Z87.891 Personal history of nicotine dependence; Z79.899 Other long term (current) drug therapy
CPT/HCPCS: 59160; 88305; J0690; J1100; J2001; J2405; J2704; J3010; J7120; 00940; A9270-GY

== ENCOUNTER 2018-12-20 18:19 | Observation (INO) | payer BC ==
--- NOTE | 2018-12-20 18:43 | EDM.PDOC ---
ED HPI GENERAL MEDICAL PROBLEM - General Chief Complaint: General Stated Complaint: FEVER Time Seen by Provider: 12/20/18 18:25 Source of Information: Reports: Patient History Limitations: Reports: No Limitations - History of Present Illness INITIAL COMMENTS - FREE TEXT/NARRATIVE: HISTORY AND PHYSICAL: History of present illness: Patient is a 33-year-old female who presents to the emergency room with complaints of intermittent fevers status post vaginal delivery on 12/05/18. She did have a sonogram which was suspicious for retained products and ultimately had a D&C yesterday. Since being discharged to home she has had light spotting which was not concerning to her. She has been taking Augmentin (has had 2 doses thus far). She did have a fever of 104.4 around 3 PM this afternoon and did take Motrin did. She called the REACTOR OPERATOR on-call, Dr Boateng, who recommended she come to the emergency room for further evaluation. Patient denies any headache, change in vision, syncope or near syncope. Denies any chest pain, back pain, shortness of breath or cough. Denies any abdominal pain, nausea, vomiting, diarrhea, constipation or dysuria. Has not noted any blood in urine or stool. Patient has been eating and drinking appropriately. Currently not breast feeding. , P:3. OBGYN: Dr Tai Review of systems: As per history of present illness and below otherwise all systems reviewed and negative. Past medical history: As per history of present illness and as reviewed below otherwise noncontributory. Surgical history: As per history of present illness and as reviewed below otherwise noncontributory. Social history: See social history for further information Family history: As per history of present illness and as reviewed below otherwise noncontributory. Physical exam: General: Well-developed and well-nourished 33-year-old female. Alert and oriented. Nontoxic appearing and in no acute distress. HEENT: Atraumatic, normocephalic, pupils equal and reactive bilaterally, negative for conjunctival pallor or scleral icterus, mucous membranes moist, trachea midline. No drooling or trismus noted. No meningeal signs. No hot potato voice noted. Lungs: Clear to auscultation, breath sounds equal bilaterally, chest nontender. Heart: S1S2, regular rate and rhythm without overt murmur Abdomen: Soft, nondistended, nontender. Negative for masses or hepatosplenomegaly. Negative for costovertebral tenderness. Pelvis: Stable nontender. Genitourinary: Deferred. Rectal: Deferred. Skin: No breast mastitis. Intact, warm, dry. No lesions or rashes noted. Extremities: Atraumatic, moves all extremities per self without difficulty or deficits, negative for cords or calf pain. Neurovascular unremarkable. Neuro: Awake, alert, oriented. Cranial nerves II through XII unremarkable. Cerebellum unremarkable. Motor and sensory unremarkable throughout. Exam nonfocal. Notes: While waiting on lab work to result the patient's temperature went from 99- 102.3. Dr. Boateng has been paged. REACTOR OPERATOR Dr. Boateng was contacted. She is agreeable that this patient should be kept for continued observation and IV antibiotics. She is requesting Clindamycin and Ampicillin. Patient was made aware of the admission and is agreeable. She denies any further questions or concerns at this time. Diagnostics: CBC, CMP, UA, blood cultures 2 Therapeutics: IV fluids, Rocephin, Tylenol Per Kilo: Ampicillin 2 gm and Clindamycin 900mg Impression: Fever, unspecified Plan: Observation admission to Med/Surg Definitive disposition and diagnosis as appropriate pending reevaluation and review of above. - Related Data Allergies Allergy/AdvReac Type Severity Reaction Status Date / Time Sulfa (Sulfonamide Allergy Anaphylactic Verified 12/20/18 18:28 Antibiotics) Shock Home Meds: Home Meds Amoxicillin/Clavulanate K [Augmentin 875-125 MG] 1 tab PO BID 10 Days #20 tablet 12/19/18 [Rx] Past Medical History HEENT History: Reports: Other (See Below) Other HEENT History: wears glasses Cardiovascular History: Reports: None Respiratory History: Reports: None Gastrointestinal History: Reports: None Genitourinary History: Reports: None REACTOR OPERATOR History: Reports: Musculoskeletal History: Reports: None Neurological History: Reports: None Psychiatric History: Reports: None Endocrine/Metabolic History: Reports: Obesity/BMI 30+ Hematologic History: Reports: None Immunologic History: Reports: None Oncologic (Cancer) History: Reports: None Dermatologic History: Reports: None - Infectious Disease History Infectious Disease History: Reports: Chicken Pox - Past Surgical History Head Surgeries/Procedures: Reports: None HEENT Surgical History: Reports: None Cardiovascular Surgical History: Reports: None Respiratory Surgical History: Reports: None GI Surgical History: Reports: None Female Surgical History: Reports: D&C Endocrine Surgical History: Reports: None Neurological Surgical History: Reports: None Musculoskeletal Surgical History: Reports: None Oncologic Surgical History: Reports: None Dermatological Surgical History: Reports: None Social & Family History - Family History Family Medical History: Noncontributory Cardiac: Reports: Hypertension OBGYN: Reports: Neurological: Reports: Alzheimers Disease Endocrine/Metabolic: Reports: Diabetes, type II Oncologic: Reports: Other (See Below) Other Oncologic Family History: soft tissue cancer; mother had BRCA gene and double mastectomy - Tobacco Use Smoking Status *Q: Never Smoker - Caffeine Use Caffeine Use: Reports: Coffee, Soda - Recreational Drug Use Recreational Drug Use: No ED ROS GENERAL - Review of Systems Review Of Systems: ROS reveals no pertinent complaints other than HPI. ED EXAM, GENERAL - Physical Exam Exam: See Below (See dictation) Course - Vital Signs Last Recorded V/S: Last Vital Signs Temp 102.3 F H 12/20/18 20:11 Pulse 99 12/20/18 18:29 Resp 20 12/20/18 18:29 BP 143/83 H 12/20/18 18:29 Pulse Ox 98 12/20/18 18:29 - Orders/Labs/Meds Orders: Active Orders 24 hr Category Date Time Status Admission Status [Patient Status] [ADT] Stat ADT 12/20/18 20:18 Active CULTURE BLOOD [BC] Stat Lab 12/20/18 19:00 Received CULTURE BLOOD [BC] Stat Lab 12/20/18 19:10 Received Ampicillin 2 gm Med 12/20/18 20:23 Ordered Sodium Chloride 0.9% [Normal Saline] 100 ml IV ONETIME Clindamycin Phosphate in D5W [Cleocin in D5W] 900 mg Med 12/20/18 20:20 Active Premix Bag 1 bag IV ONETIME Sodium Chloride 0.9% [Normal Saline] 1,000 ml Med 12/20/18 20:15 Active IV ASDIRECTED cefTRIAXone [Rocephin in Dextrose,Iso-Osm 1 GM/50 ML] 1 Med 12/20/18 20:03 Active gm Premix Bag 1 bag IV ONETIME Blood Culture x2 Reflex Set [OM.PC] Stat Oth 12/20/18 18:33 Ordered Medication Orders Ceftriaxone Sodium/Dextrose 1 (gm/ Premix) 50 mls @ 100 mls/hr IV ONETIME ONE Stop: 12/20/18 20:32 Last Admin: 12/20/18 20:11 Dose: 100 mls/hr Sodium Chloride (Normal Saline) 1,000 mls @ 999 mls/hr IV ASDIRECTED TYRON Clindamycin Phosphate 900 mg/ (Premix) 50 mls @ 100 mls/hr IV ONETIME ONE Stop: 12/20/18 20:49 Ampicillin Sodium 2 gm/ Sodium (Chloride) 100 mls @ 200 mls/hr IV ONETIME ONE Stop: 12/20/18 20:52 Labs: Laboratory Tests 12/20/18 12/20/18 12/20/18 Range/Units 18:55 19:00 19:00 WBC 10.36 (4.0-11.0) K/uL RBC 2.89 L (4.30-5.90) M/uL Hgb 8.5 L (12.0-16.0) g/dL Hct 25.7 L (36.0-46.0) % MCV 88.9 (80.0-98.0) fL MCH 29.4 (27.0-32.0) pg MCHC 33.1 (31.0-37.0) g/dL RDW Std Deviation 45.3 (28.0-62.0) fl RDW Coeff of Yocasta 14 (11.0-15.0) % Plt Count 250 (150-400) K/uL MPV 9.70 (7.40-12.00) fL Add Manual Diff YES Neutrophils % (Manual) 84 H (48.0-80.0) % Band Neutrophils % 3 % Lymphocytes % (Manual) 11 L (16.0-40.0) % Monocytes % (Manual) 1 (0.0-15.0) % Eosinophils % (Manual) 1 (0.0-7.0) % Nucleated RBC % 0.0 /100WBC Absolute Seg Neuts 8.7 H (1.4-5.7) Band Neutrophils # 0.3 Lymphocytes # (Manual) 1.1 (0.6-2.4) Monocytes # (Manual) 0.1 (0.0-0.8) Eosinophils # (Manual) 0.1 (0.0-0.7) Nucleated RBCs # 0 K/uL Lactate (0.20-2.00) mmol/L Sodium 144 (136-145) mmol/L Potassium 3.4 L (3.5-5.1) mmol/L Chloride 107 (98-107) mmol/L Carbon Dioxide 26.0 (21.0-32.0) mmol/L BUN 12 (7.0-18.0) mg/dL Creatinine 0.7 (0.6-1.0) mg/dL Est Cr Clr Drug Dosing 99.63 mL/min Estimated GFR (MDRD) > 60.0 ml/min Glucose 93 (74-106) mg/dL Calcium 8.3 L (8.5-10.1) mg/dL Total Bilirubin 0.3 (0.2-1.0) mg/dL AST 17 (15-37) IU/L ALT 24 (14-63) IU/L Alkaline Phosphatase 106 (46-116) U/L Total Protein 6.1 L (6.4-8.2) g/dL Albumin 2.8 L (3.4-5.0) g/dL Globulin 3.3 (2.6-4.0) g/dL Albumin/Globulin Ratio 0.9 (0.9-1.6) Urine Color YELLOW Urine Appearance CLEAR Urine pH 6.0 (5.0-8.0) Ur Specific [place] 1.025 (1.001-1.035) Urine Protein NEGATIVE (NEGATIVE) mg/dL Urine Glucose (UA) NEGATIVE (NEGATIVE) mg/dL Urine Ketones NEGATIVE (NEGATIVE) mg/dL Urine Occult Blood TRACE-INTACT H (NEGATIVE) Urine Nitrite NEGATIVE (NEGATIVE) Urine Bilirubin NEGATIVE (NEGATIVE) Urine Urobilinogen 0.2 (<2.0) EU/dL Ur Leukocyte Esterase NEGATIVE (NEGATIVE) Urine RBC 0-2 (0-2/HPF) Urine WBC 0-1 (0-5/HPF) Ur Epithelial Cells RARE (NONE-FEW) Urine Bacteria RARE (NEGATIVE) Urine Mucus LIGHT (NONE-MOD) 12/20/18 Range/Units 19:00 WBC (4.0-11.0) K/uL RBC (4.30-5.90) M/uL Hgb (12.0-16.0) g/dL Hct (36.0-46.0) % MCV (80.0-98.0) fL MCH (27.0-32.0) pg MCHC (31.0-37.0) g/dL RDW Std Deviation (28.0-62.0) fl RDW Coeff of Yocasta (11.0-15.0) % Plt Count (150-400) K/uL MPV (7.40-12.00) fL Add Manual Diff Neutrophils % (Manual) (48.0-80.0) % Band Neutrophils % % Lymphocytes % (Manual) (16.0-40.0) % Monocytes % (Manual) (0.0-15.0) % Eosinophils % (Manual) (0.0-7.0) % Nucleated RBC % /100WBC Absolute Seg Neuts (1.4-5.7) Band Neutrophils # Lymphocytes # (Manual) (0.6-2.4) Monocytes # (Manual) (0.0-0.8) Eosinophils # (Manual) (0.0-0.7) Nucleated RBCs # K/uL Lactate 1.2 (0.20-2.00) mmol/L Sodium (136-145) mmol/L Potassium (3.5-5.1) mmol/L Chloride (98-107) mmol/L Carbon Dioxide (21.0-32.0) mmol/L BUN (7.0-18.0) mg/dL Creatinine (0.6-1.0) mg/dL Est Cr Clr Drug Dosing mL/min Estimated GFR (MDRD) ml/min Glucose (74-106) mg/dL Calcium (8.5-10.1) mg/dL Total Bilirubin (0.2-1.0) mg/dL AST (15-37) IU/L ALT (14-63) IU/L Alkaline Phosphatase (46-116) U/L Total Protein (6.4-8.2) g/dL Albumin (3.4-5.0) g/dL Globulin (2.6-4.0) g/dL Albumin/Globulin Ratio (0.9-1.6) Urine Color Urine Appearance Urine pH (5.0-8.0) Ur Specific [place] (1.001-1.035) Urine Protein (NEGATIVE) mg/dL Urine Glucose (UA) (NEGATIVE) mg/dL Urine Ketones (NEGATIVE) mg/dL Urine Occult Blood (NEGATIVE) Urine Nitrite (NEGATIVE) Urine Bilirubin (NEGATIVE) Urine Urobilinogen (<2.0) EU/dL Ur Leukocyte Esterase (NEGATIVE) Urine RBC (0-2/HPF) Urine WBC (0-5/HPF) Ur Epithelial Cells (NONE-FEW) Urine Bacteria (NEGATIVE) Urine Mucus (NONE-MOD) Meds: Medications Generic Name Dose Route Start Last Admin Trade Name Freq PRN Reason Stop Dose Admin Ceftriaxone Sodium/Dextrose 1 50 mls @ 100 mls/hr 12/20/18 20:03 12/20/18 20: 11 gm/ Premix IV 12/20/18 20:32 100 mls/hr ONETIME ONE Administration Sodium Chloride 1,000 mls @ 999 mls/hr 12/20/18 20:15 Normal Saline IV ASDIRECTED TYRON Clindamycin Phosphate 900 mg/ 50 mls @ 100 mls/hr 12/20/18 20:20 Premix IV 12/20/18 20:49 ONETIME ONE Ampicillin Sodium 2 gm/ Sodium 100 mls @ 200 mls/hr 12/20/18 20:23 Chloride IV 12/20/18 20:52 ONETIME ONE Discontinued Medications Generic Name Dose Route Start Last Admin Trade Name Freq PRN Reason Stop Dose Admin Acetaminophen 1,000 mg 12/20/18 20:03 12/20/18 20:11 Tylenol Extra Strength PO 12/20/18 20:04 1,000 mg ONETIME ONE Administration Acetaminophen Confirm 12/20/18 20:04 12/20/18 20:13 Tylenol Extra Strength Administered 12/20/18 20:05 Not Given Dose 1,000 mg .ROUTE .STK-MED ONE Ceftriaxone Sodium/Dextrose Confirm 12/20/18 20:04 12/20/18 20:13 Rocephin In Dextrose,Iso-Osm 1 Gm/50 Ml Administered 12/20/18 20:05 Not Given Dose 50 mls @ as directed .ROUTE .STK-MED ONE Departure - Departure Time of Disposition: 20:27 Disposition: Refer to Observation Clinical Impression: Fever Qualifiers: Fever type: unspecified Qualified Code(s): R50.9 - Fever, unspecified - Discharge Information Referrals: Cathy Tai MD [Primary Care Provider] - Forms: ED Department Discharge - My Orders Last 24 Hours: My Active Orders 12/20/18 18:33 Blood Culture x2 Reflex Set [OM.PC] Stat 12/20/18 19:00 CULTURE BLOOD [BC] Stat 12/20/18 19:10 CULTURE BLOOD [BC] Stat 12/20/18 20:03 cefTRIAXone [Rocephin in Dextrose,Iso-Osm 1 GM/50 ML] 1 gm Premix Bag 1 bag IV ONETIME 12/20/18 20:15 Sodium Chloride 0.9% [Normal Saline] 1,000 ml IV ASDIRECTED 12/20/18 20:18 Admission Status [Patient Status] [ADT] Stat 12/20/18 20:20 Clindamycin Phosphate in D5W [Cleocin in D5W] 900 mg Premix Bag 1 bag IV ONETIME 12/20/18 20:23 Ampicillin 2 gm Sodium Chloride 0.9% [Normal Saline] 100 ml IV ONETIME - Assessment/Plan Last 24 Hours: My Active Orders 12/20/18 18:33 Blood Culture x2 Reflex Set [OM.PC] Stat 12/20/18 19:00 CULTURE BLOOD [BC] Stat 12/20/18 19:10 CULTURE BLOOD [BC] Stat 12/20/18 20:03 cefTRIAXone [Rocephin in Dextrose,Iso-Osm 1 GM/50 ML] 1 gm Premix Bag 1 bag IV ONETIME 12/20/18 20:15 Sodium Chloride 0.9% [Normal Saline] 1,000 ml IV ASDIRECTED 12/20/18 20:18 Admission Status [Patient Status] [ADT] Stat 12/20/18 20:20 Clindamycin Phosphate in D5W [Cleocin in D5W] 900 mg Premix Bag 1 bag IV ONETIME 12/20/18 20:23 Ampicillin 2 gm Sodium Chloride 0.9% [Normal Saline] 100 ml IV ONETIME
[2018-12-20 19:50] LABS: BLOOD UREA NITROGEN,BUN 12 mg/dL (7.0-18.0); CHLORIDE,CL 107 mmol/L (98-107); GLUCOSE RANDOM 93 mg/dL (74-106); POTASSIUM,K 3.4 mmol/L (3.5-5.1); SODIUM,NA 144 mmol/L (136-145)
[2018-12-20] MEDS ORDERED: cefTRIAXone 1 GM in Premix Bag 1 BAG IV ONE (20:03)
[2018-12-20] MEDS ORDERED: Acetaminophen 500 MG Tab PO ONE (20:03)
[2018-12-20] MEDS ORDERED: Acetaminophen 500 MG Tab ONE (20:04)
[2018-12-20] MEDS ORDERED: Sodium Chloride 0.9% 1,000 ML IV SCH (20:15)
[2018-12-20] MEDS ORDERED: Clindamycin Phosphate in D5W 900 MG in Premix Bag 1 BAG IV ONE ×2 (20:20)
[2018-12-20] MEDS ORDERED: Ampicillin 2 GM in Sodium Chloride 0.9% 100 ML IV ONE (20:23)
[2018-12-20] MEDS ORDERED: Acetaminophen/oxyCODONE 325-5 MG Tab PO PRN (21:43)
[2018-12-20] MEDS ORDERED: GENTAMICIN IV ONE (22:00)
[2018-12-20] MEDS ORDERED: Lactated Ringers 1,000 ML IV ONE (22:00)
[2018-12-20] MEDS ORDERED: SODIUM CHLORIDE 0.9% IV ONE (22:00)
--- NOTE | 2018-12-20 22:34 | CR ---
Indication: Postop fever Technique: Chest 2 views Comparison: None Findings: Cardiovascular and mediastinum: Heart size and vasculature are normal in caliber and appearance. Lungs and pleural spaces: Lungs are clear. No sign of infiltrate or mass. No sign of pleural effusion. No pneumothorax. Bones and soft tissues: No significant findings. Impression: No acute pulmonary consolidation. Dictated by Keron Stack MD @ Dec 20 2018 10:27PM Signed by Dr. Keron Stack @ Dec 20 2018 10:33PM
--- NOTE | 2018-12-20 23:00 | US ---
INDICATION: COMPARISON: None available. FINDINGS: Transabdominal ultrasound examination of the female pelvis was performed. Transvaginal examination was not performed at the request of the patient. The uterus is anteverted with no evidence of myometrial mass. It is mildly enlarged, measuring 12.2 x 7.6 x 9.1 centimeters. There is a heterogeneous, slightly hyperechoic mass in the uterine cavity measuring 3.9 x 1.6 x 4.3 centimeters. It does not show increased color Doppler flow. This may be a prominent blood clot. No distinct endometrial lining is identifiable separate from the heterogeneous mass described above. The ovaries cannot be identified. There is no sign of free fluid in the pelvis. IMPRESSION: Heterogeneous, slightly hyperechoic mass in the uterine cavity measuring 3.9 x 1.6 x 4.3 centimeters. This is most likely blood clot. No sign of increased color Doppler flow in this mass. Unable to identify the ovaries. Dictated by Fidel Wise MD @ Dec 20 2018 10:51PM Signed by Dr. Fidel Wise @ Dec 20 2018 10:57PM
[2018-12-21] MEDS: Acetaminophen 325 MG Tab PO PRN ×2 (01:28→20:00)
[2018-12-21] MEDS ORDERED: Ketorolac 30 MG/ML SDV IVPUSH ONE (02:49)
[2018-12-21] MEDS: Ampicillin 2 GM in Sodium Chloride 0.9% 100 ML IV SCH ×4 (03:43→22:23)
[2018-12-21] MEDS ORDERED: Iopamidol 755 Mg/ML 100 ML Bottle IVPUSH ONE (03:58)
--- NOTE | 2018-12-21 04:34 | CT ---
INDICATION: Chest pain and shortness of breath TECHNIQUE: CT chest PE was acquired with 100 cc Isovue 370 intravenous contrast. COMPARISON: None. FINDINGS: Heart and vasculature: Contrast opacification of the pulmonary arterial tree is adequate. No sign of pulmonary embolism. Heart size is normal. Thoracic aorta and pulmonary artery are normal in caliber. Lungs and pleural: Vascular distension with trace bilateral pleural effusions mild bilateral ground-glass opacities as well as interlobular septal thickening. Minimal dependent atelectasis. Lymph nodes/mediastinum: Right hilar lymph nodes measure up to 12 millimeters in short axis. Subcarinal lymph nodes measure up to 11 millimeters. Chest wall: No masses. Upper abdomen: Normal. Bones: Unremarkable for age. IMPRESSION: 1. No evidence of pulmonary embolus. 2. Trace bilateral pleural effusions with bilateral ground-glass opacities and interlobular septal thickening consistent with pulmonary edema. Please note that all CT scans at this facility use dose modulation, iterative reconstruction, and/or weight-based dosing when appropriate to reduce radiation dose to as low as reasonably achievable. Dictated by Keron Stack MD @ Dec 21 2018 4:27AM Signed by Dr. Keron Stack @ Dec 21 2018 4:32AM
[2018-12-21] MEDS ORDERED: Furosemide 20 MG/2 ML VIAL IVPUSH ONE (04:44)
[2018-12-21] MEDS: SODIUM CHLORIDE 0.9% IV SCH ×2 (05:13)
[2018-12-21] MEDS: D5W IV SCH ×2 (05:13)
[2018-12-21] MEDS: CLINDAMYCIN PHOSPHATE IV SCH ×2 (05:13)
[2018-12-21] MEDS ORDERED: Heparin Sodium 5,000 Units/ML Vial SUBCUT ONE (08:19)
[2018-12-21] MEDS: Ibuprofen 800 MG Tab PO SCH ×3 (08:27→21:31)
[2018-12-21] MEDS: Sodium Chloride 0.9% 1,000 ML IV SCH ×2 (08:28→19:27)
--- NOTE | 2018-12-21 08:53 | PCM.HP ---
H&P History of Present Illness - General Date of Service: 12/21/18 Admit Problem/Dx: Admission Diagnosis/Problem Admission Diagnosis/Problem Fever, unspecified Source of Information: Patient - History of Present Illness Initial Comments - Free Text/Narative: 33yo P3 s/p on 12/05 and D & C on 12/19 for retained products. Patient is complains of fever at home of 102 -104 she also complains of chills. She denies any heavy vaginal bleeding. Patient had some episodes of fever some days after delivery of which she was evaluated for. She has stopped and is using tight bra to help to stop . She denies lower abdominal pain, chest pain , leg pain or urinary symptoms Exam: General : NAD Chest: CTA BL CVS: s1 s2 no murmurs Abdomen; flat , non distended , not tender to light and deep palpation Pelvis: Normal external genitalia , Uterus about 16 weeks , slightly tender ( appropriate for recent ) speculum , cervical os closed with scant blood VSS: BP: 124-140s/70s- 80 HR 99 - 118 Temp: 37.3 -39.1 CBC: 10 < 8.5/25>250 ; 12 < 7.7/23.4>223 A/P 33 yo P3 day 15 , s/p D & C POD 1 , fever Plan Admit Await Blood culture CBC done in AM Amp 2g q 6hr Clindamycin 900mg q 8hrs Gentamicin @ 5mg/kg /day Heparin 5000iu subcut x 1 dose for now Chest Xray Urine Culture Ultrasound Head Pain Score (Numeric/FACES): 2 - Related Data Allergies/Adverse Reactions: Allergies Allergy/AdvReac Type Severity Reaction Status Date / Time Sulfa (Sulfonamide Allergy Anaphylactic Verified 12/20/18 23:38 Antibiotics) Shock Home Medications: Home Meds Amoxicillin/Clavulanate K [Augmentin 875-125 MG] 1 tab PO BID 10 Days #20 tablet 12/19/18 [Rx] Past Medical History HEENT History: Reports: Other (See Below) Other HEENT History: wears glasses Cardiovascular History: Reports: None Respiratory History: Reports: None Gastrointestinal History: Reports: None Genitourinary History: Reports: None IT DATA ARCHITECT History: Reports: Musculoskeletal History: Reports: None Neurological History: Reports: None Psychiatric History: Reports: None Endocrine/Metabolic History: Reports: Obesity/BMI 30+ Hematologic History: Reports: None Immunologic History: Reports: None Oncologic (Cancer) History: Reports: None Dermatologic History: Reports: None - Infectious Disease History Infectious Disease History: Reports: Chicken Pox - Past Surgical History Head Surgeries/Procedures: Reports: None HEENT Surgical History: Reports: None Cardiovascular Surgical History: Reports: None Respiratory Surgical History: Reports: None GI Surgical History: Reports: None Female Surgical History: Reports: D&C Endocrine Surgical History: Reports: None Neurological Surgical History: Reports: None Musculoskeletal Surgical History: Reports: None Oncologic Surgical History: Reports: None Dermatological Surgical History: Reports: None Social & Family History - Family History Family Medical History: Noncontributory Cardiac: Reports: Hypertension OBGYN: Reports: Neurological: Reports: Alzheimers Disease Endocrine/Metabolic: Reports: Diabetes, type II Oncologic: Reports: Other (See Below) Other Oncologic Family History: soft tissue cancer; mother had BRCA gene and double mastectomy - Tobacco Use Smoking Status *Q: Former Smoker Used Tobacco, but Quit: Yes Month/Year Tobacco Last Used: 2008 Second Hand Smoke Exposure: No - Caffeine Use Caffeine Use: Reports: Coffee, Soda, Tea - Recreational Drug Use Recreational Drug Use: No H&P Review of Systems - Review of Systems: Review Of Systems: See Below Exam - Exam Exam: See Below (See HPI) - Vital Signs Vital Signs: Last Vital Signs Temp 37.2 C 12/21/18 05:55 Pulse 98 12/21/18 04:20 Resp 18 12/21/18 04:20 BP 117/64 12/21/18 04:20 Pulse Ox 97 12/21/18 04:20 Weight: 85.457 kg - Patient Data Lab Results Last 24 hrs: Laboratory Results - last 24 hr 12/20/18 12/20/18 12/20/18 Range/Units 18:55 19:00 19:00 WBC 10.36 (4.0-11.0) K/uL RBC 2.89 L (4.30-5.90) M/uL Hgb 8.5 L (12.0-16.0) g/dL Hct 25.7 L (36.0-46.0) % MCV 88.9 (80.0-98.0) fL MCH 29.4 (27.0-32.0) pg MCHC 33.1 (31.0-37.0) g/dL RDW Std Deviation 45.3 (28.0-62.0) fl RDW Coeff of Yocasta 14 (11.0-15.0) % Plt Count 250 (150-400) K/uL MPV 9.70 (7.40-12.00) fL Neut % (Auto) (48.0-80.0) % Lymph % (Auto) (16.0-40.0) % Peach % (Auto) (0.0-15.0) % Eos % (Auto) (0.0-7.0) % Baso % (Auto) (0.0-1.5) % Neut # (Auto) (1.4-5.7) K/uL Lymph # (Auto) (0.6-2.4) K/uL Peach # (Auto) (0.0-0.8) K/uL Eos # (Auto) (0.0-0.7) K/uL Baso # (Auto) (0.0-0.1) K/uL Add Manual Diff YES Neutrophils % (Manual) 84 H (48.0-80.0) % Band Neutrophils % 3 % Lymphocytes % (Manual) 11 L (16.0-40.0) % Monocytes % (Manual) 1 (0.0-15.0) % Eosinophils % (Manual) 1 (0.0-7.0) % Nucleated RBC % 0.0 /100WBC Absolute Seg Neuts 8.7 H (1.4-5.7) Band Neutrophils # 0.3 Lymphocytes # (Manual) 1.1 (0.6-2.4) Monocytes # (Manual) 0.1 (0.0-0.8) Eosinophils # (Manual) 0.1 (0.0-0.7) Nucleated RBCs # 0 K/uL Lactate (0.20-2.00) mmol/L Sodium 144 (136-145) mmol/L Potassium 3.4 L (3.5-5.1) mmol/L Chloride 107 (98-107) mmol/L Carbon Dioxide 26.0 (21.0-32.0) mmol/L BUN 12 (7.0-18.0) mg/dL Creatinine 0.7 (0.6-1.0) mg/dL Est Cr Clr Drug Dosing 99.63 mL/min Estimated GFR (MDRD) > 60.0 ml/min Glucose 93 (74-106) mg/dL Calcium 8.3 L (8.5-10.1) mg/dL Total Bilirubin 0.3 (0.2-1.0) mg/dL AST 17 (15-37) IU/L ALT 24 (14-63) IU/L Alkaline Phosphatase 106 (46-116) U/L Total Protein 6.1 L (6.4-8.2) g/dL Albumin 2.8 L (3.4-5.0) g/dL Globulin 3.3 (2.6-4.0) g/dL Albumin/Globulin Ratio 0.9 (0.9-1.6) Urine Color YELLOW Urine Appearance CLEAR Urine pH 6.0 (5.0-8.0) Ur Specific Adamant 1.025 (1.001-1.035) Urine Protein NEGATIVE (NEGATIVE) mg/dL Urine Glucose (UA) NEGATIVE (NEGATIVE) mg/dL Urine Ketones NEGATIVE (NEGATIVE) mg/dL Urine Occult Blood TRACE-INTACT H (NEGATIVE) Urine Nitrite NEGATIVE (NEGATIVE) Urine Bilirubin NEGATIVE (NEGATIVE) Urine Urobilinogen 0.2 (<2.0) EU/dL Ur Leukocyte Esterase NEGATIVE (NEGATIVE) Urine RBC 0-2 (0-2/HPF) Urine WBC 0-1 (0-5/HPF) Ur Epithelial Cells RARE (NONE-FEW) Urine Bacteria RARE (NEGATIVE) Urine Mucus LIGHT (NONE-MOD) 12/20/18 12/21/18 Range/Units 19:00 05:30 WBC 12.23 H (4.0-11.0) K/uL RBC 2.65 L (4.30-5.90) M/uL Hgb 7.7 L (12.0-16.0) g/dL Hct 23.4 L (36.0-46.0) % MCV 88.3 (80.0-98.0) fL MCH 29.1 (27.0-32.0) pg MCHC 32.9 (31.0-37.0) g/dL RDW Std Deviation 45.7 (28.0-62.0) fl RDW Coeff of Yocasta 14 (11.0-15.0) % Plt Count 223 (150-400) K/uL MPV 9.70 (7.40-12.00) fL Neut % (Auto) 91.2 H (48.0-80.0) % Lymph % (Auto) 6.2 L (16.0-40.0) % Peach % (Auto) 2.5 (0.0-15.0) % Eos % (Auto) 0.0 (0.0-7.0) % Baso % (Auto) 0.1 (0.0-1.5) % Neut # (Auto) 11.2 H (1.4-5.7) K/uL Lymph # (Auto) 0.8 (0.6-2.4) K/uL Peach # (Auto) 0.3 (0.0-0.8) K/uL Eos # (Auto) 0.0 (0.0-0.7) K/uL Baso # (Auto) 0.0 (0.0-0.1) K/uL Add Manual Diff Neutrophils % (Manual) (48.0-80.0) % Band Neutrophils % % Lymphocytes % (Manual) (16.0-40.0) % Monocytes % (Manual) (0.0-15.0) % Eosinophils % (Manual) (0.0-7.0) % Nucleated RBC % 0.0 /100WBC Absolute Seg Neuts (1.4-5.7) Band Neutrophils # Lymphocytes # (Manual) (0.6-2.4) Monocytes # (Manual) (0.0-0.8) Eosinophils # (Manual) (0.0-0.7) Nucleated RBCs # 0 K/uL Lactate 1.2 (0.20-2.00) mmol/L Sodium (136-145) mmol/L Potassium (3.5-5.1) mmol/L Chloride (98-107) mmol/L Carbon Dioxide (21.0-32.0) mmol/L BUN (7.0-18.0) mg/dL Creatinine (0.6-1.0) mg/dL Est Cr Clr Drug Dosing mL/min Estimated GFR (MDRD) ml/min Glucose (74-106) mg/dL Calcium (8.5-10.1) mg/dL Total Bilirubin (0.2-1.0) mg/dL AST (15-37) IU/L ALT (14-63) IU/L Alkaline Phosphatase (46-116) U/L Total Protein (6.4-8.2) g/dL Albumin (3.4-5.0) g/dL Globulin (2.6-4.0) g/dL Albumin/Globulin Ratio (0.9-1.6) Urine Color Urine Appearance Urine pH (5.0-8.0) Ur Specific Adamant (1.001-1.035) Urine Protein (NEGATIVE) mg/dL Urine Glucose (UA) (NEGATIVE) mg/dL Urine Ketones (NEGATIVE) mg/dL Urine Occult Blood (NEGATIVE) Urine Nitrite (NEGATIVE) Urine Bilirubin (NEGATIVE) Urine Urobilinogen (<2.0) EU/dL Ur Leukocyte Esterase (NEGATIVE) Urine RBC (0-2/HPF) Urine WBC (0-5/HPF) Ur Epithelial Cells (NONE-FEW) Urine Bacteria (NEGATIVE) Urine Mucus (NONE-MOD) Result Diagrams: 12/21/18 05:30 12/20/18 19:00 *Q Meaningful Use (ADM) - VTE *Q VTE Criteria *Q: Venodyne - Problem List (1) Fever SNOMED Code(s): 702680350 ICD Code: R50.9 - FEVER, UNSPECIFIED Status: Acute Current Visit: Yes Qualifiers: Fever type: unspecified Qualified Code(s): R50.9 - Fever, unspecified Problem List Initiated/Reviewed/Updated: Yes Orders Last 24hrs: A/P 33 yo P3 day 15 , s/p D & C POD 1 , fever Plan Admit Await Blood culture CBC done in AM Amp 2g q 6hr Clindamycin 900mg q 8hrs Gentamicin @ 5mg/kg /day Heparin 5000iu subcut x 1 dose for now Chest Xray Urine Culture Pelvic USS IVF NS @ 125ml/hr Active Orders 24 hr Category Date Time Status Admission Status [Patient Status] [ADT] Stat ADT 12/20/18 20:18 Active Patient Status [ADT] Routine ADT 12/20/18 21:37 Active Ambulate [RC] ASDIRECTED Care 12/20/18 21:43 Active Notify Provider Consults [RC] ASDIRECTED Care 12/21/18 00:30 Active Oxygen Therapy [RC] PRN Care 12/20/18 21:37 Active VTE/DVT Education [RC] PER UNIT ROUTINE Care 12/20/18 21:37 Active Vital Signs [RC] Q4H Care 12/20/18 21:37 Active CULTURE BLOOD [BC] Stat Lab 12/20/18 19:00 Received CULTURE BLOOD [BC] Stat Lab 12/20/18 19:10 Received CULTURE GENITAL [RM] Routine Lab 12/20/18 23:00 Received CULTURE URINE [RM] Routine Lab 12/20/18 18:55 Received GENTAMICIN RANDOM [CHEM] Routine Lab 12/21/18 08:00 Ordered Acetaminophen [Tylenol] Med 12/20/18 21:43 Active 650 mg PO Q4H PRN Acetaminophen/oxyCODONE [Percocet 325-5 MG] Med 12/20/18 21:43 Active 2 tab PO Q4H PRN Ampicillin 2 gm Med 12/21/18 04:00 Active Sodium Chloride 0.9% [Normal Saline] 100 ml IV Q6H Clindamycin Phosphate in D5W [Cleocin in D5W] 900 mg Med 12/21/18 06:00 Active Sodium Chloride 0.9% [Normal Saline] 50 ml IV Q8H Sodium Chloride 0.9% [Normal Saline] 1,000 ml Med 12/20/18 20:15 Active IV ASDIRECTED Blood Culture x2 Reflex Set [OM.PC] Stat Oth 12/20/18 18:33 Ordered Resuscitation Status Routine Resus Stat 12/20/18 21:37 Ordered Medication Orders Acetaminophen (Tylenol) 650 mg PO Q4H PRN PRN Reason: Pain (Mild 1-3)/fever Last Admin: 12/21/18 01:28 Dose: 650 mg Sodium Chloride (Normal Saline) 1,000 mls @ 999 mls/hr IV ASDIRECTED TYRON Last Admin: 12/20/18 23:05 Dose: 999 mls/hr Ampicillin Sodium 2 gm/ Sodium (Chloride) 100 mls @ 200 mls/hr IV Q6H [facility] Last Admin: 12/21/18 03:43 Dose: 200 mls/hr Clindamycin Phosphate 900 mg/ (Sodium Chloride) 100 mls @ 178.571 mls/hr IV Q8H [facility] Last Admin: 12/21/18 05:13 Dose: 178.571 mls/hr Oxycodone/Acetaminophen (Percocet 325-5 Mg) 2 tab PO Q4H PRN PRN Reason: Pain (moderate 4-6)
--- NOTE | 2018-12-21 09:16 | PCM.SN ---
- Free Text/Narrative Note: I was informed that patient had a temp of 102 , with desaturation to the 80's and tachycardia I gave verbal order for a CTscan of the chest with and without contrast to r/o PE Patient seen at bedside for evaluation , she is shivering and temp 99, HR: 110s , Osat 98 on 2L of oxygen and [address] scan reviewed : Mild pulmonary edema ( prior order for 20mg lasix given) A/P 33 P3 with postop fever high suspicion for septic thrombophlebilitis based on spiking fever Plan IVF @ 125ml/l Will continue antibiotics Heparin 5000 iu bid for thromboprophylaxis Will r/o STP with Abdominopelvic CT - will be done at 4pm Motrin 800mg tid Perocet prn for pain Ausculate lung 4hrly to check for Pulmonary edema I informed patient of plan Patient signed out to Dr Tai
--- NOTE | 2018-12-21 11:11 | US ---
INDICATION: Suspected DVT, history of blood clots in the uterus. COMPARISON: none TECHNIQUE: A compression venous ultrasound exam was performed of both lower extremities using rodriguez scale imaging, color Doppler and spectral Doppler analysis. FINDINGS: Sonographic imaging of the lower extremities demonstrates normal compressibility and color Doppler venous blood flow within the common femoral, deep femoral, and proximal greater saphenous veins. Within the thighs the femoral veins are patent and compressible. At a lower level the popliteal and posterior tibial veins also show normal compressibility and color Doppler venous blood flow. IMPRESSION: No evidence of deep vein thrombosis within either the left or right lower extremity. Dictated by Elda Cheatham MD @ Dec 21 2018 11:04AM Signed by Dr. Elda Cheatham @ Dec 21 2018 11:10AM
--- NOTE | 2018-12-21 13:35 | PCM.SN ---
- Free Text/Narrative Note: Patient's most recent fever has resolved. She has an appetite. She denies pain. VS are stable currently. Doppler of lower extremities are negative for DVT. Will begin anticoagulation regimen for suspected septic pelvic thrombophlebitis. CT scan/abdomen and pelvis this afternoon. 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 Explained findings and suspected diagnosis to Elisa at length. She voices her understanding and that we advise iv antibiotics until 24 hours afebrile.
[2018-12-21] MEDS ORDERED: Enoxaparin 100 MG/1 ML Syringe SUBCUT SCH (14:00)
[2018-12-21] MEDS: Clindamycin Phosphate in D5W 900 MG in Premix Bag 1 BAG IV SCH ×4 (14:11→21:33)
[2018-12-21] MEDS: Enoxaparin 100 MG/1 ML Syringe SUBCUT SCH (16:08)
--- NOTE | 2018-12-21 17:24 | CT ---
INDICATION: Suspected septic thrombophlebitis. Fever. Status post recent childbirth and TECHNIQUE: CT abdomen and pelvis acquired without and with 100 cc Isovue 370 IV contrast. COMPARISON: CT chest December 21, 2018. FINDINGS: Lower chest: Small bilateral pleural effusions. Liver: Unremarkable. Normal in size and attenuation. No masses. Gallbladder and bile ducts: Unremarkable. No stones or inflammation. No biliary dilatation. Pancreas: Unremarkable. No mass or inflammation. Spleen: Spleen is enlarged measuring 18 cm in greatest dimension. No focal lesion. Adrenal glands: Unremarkable. No nodules. Kidneys: Unremarkable. No masses, stones, or hydronephrosis. GI tract: Unremarkable. Normal in caliber. No sign of mass or inflammation. Normal appendix. Vasculature: Unremarkable. Mesenteric arteries are patent. Lymph nodes: No lymphadenopathy. Omentum/Peritoneum/Abdominal Wall: Unremarkable. No sign of mass or infiltration. No free air or significant free fluid. Pelvis: There is a morphology of the uterus. Endometrium is markedly distended with high attenuation material. Pelvis is otherwise unremarkable. Bones: Unremarkable for age. IMPRESSION: 1. Distended endometrium with high attenuation material consistent with blood products. Endometritis cannot be confirmed nor excluded on this exam. 2. Nonspecific splenomegaly. 3. Small bilateral pleural effusions. 4. Remainder of the exam is unremarkable. No other findings to explain sepsis or fever. Please note that all CT scans at this facility use dose modulation, iterative reconstruction, and/or weight-based dosing when appropriate to reduce radiation dose to as low as reasonably achievable. Dictated by Hemal Knight MD @ Dec 21 2018 5:13PM Signed by Dr. Hemal Knihgt @ Dec 21 2018 5:23PM
--- NOTE | 2018-12-21 18:48 | PCM.SN ---
- Free Text/Narrative Note: Patient was seen at bedside. She is still feeling fatigued but otherwise is in no pain and temperature back down within normal range. CT was reviewed and discussed with Dr. Bustamante. Results are negative for underlying pathology.
[2018-12-21] MEDS ORDERED: Heparin Sodium 5,000 Units/ML Vial SUBCUT SCH (20:00)
[2018-12-22] MEDS: CLINDAMYCIN PHOSPHATE IV SCH ×2 (00:29)
[2018-12-22] MEDS: SODIUM CHLORIDE 0.9% IV SCH ×2 (00:29)
[2018-12-22] MEDS: D5W IV SCH ×2 (00:29)
[2018-12-22] MEDS: Ampicillin 2 GM in Sodium Chloride 0.9% 100 ML IV SCH ×4 (03:55→21:55)
[2018-12-22] MEDS: Enoxaparin 100 MG/1 ML Syringe SUBCUT SCH ×2 (03:56→16:06)
[2018-12-22] MEDS: Sodium Chloride 0.9% 1,000 ML IV SCH ×2 (04:07→15:59)
[2018-12-22] MEDS: Ibuprofen 800 MG Tab PO SCH ×3 (05:46→21:18)
[2018-12-22] MEDS: Clindamycin Phosphate in D5W 900 MG in Premix Bag 1 BAG IV SCH ×6 (05:47→21:20)
[2018-12-22] MEDS ORDERED: Gentamicin 420 MG in Sodium Chloride 0.9% 100 ML IV ONE (06:00)
--- NOTE | 2018-12-22 09:23 | PCM.PN ---
<Bibiana Alcantara - Last Filed: 12/22/18 09:25> - General Info Date of Service: 12/22/18 Functional Status: Reports: Pain Controlled, Tolerating Diet - Review of Systems General: Reports: No Symptoms, Fatigue. Denies: Fever, Chills HEENT: Reports: Headaches (mild). Denies: Eye Pain, Visual Changes Pulmonary: Reports: No Symptoms. Denies: Shortness of Breath Cardiovascular: Reports: No Symptoms Gastrointestinal: Reports: No Symptoms. Denies: Abdominal Pain Genitourinary: Reports: No Symptoms Musculoskeletal: Reports: No Symptoms Skin: Reports: No Symptoms Neurological: Reports: No Symptoms Psychiatric: Reports: No Symptoms - Patient Data Vitals - Most Recent: Last Vital Signs Temp 98.4 F 12/22/18 07:10 Pulse 94 12/22/18 07:10 Resp 16 12/22/18 07:10 BP 131/87 12/22/18 07:10 Pulse Ox 95 12/22/18 07:10 Weight - Most Recent: 85.457 kg I&O - Last 24 Hours: Intake & Output 12/21/18 12/22/18 12/22/18 22:59 06:59 14:59 Intake Total 1747 1150 Output Total 2500 Balance -753 1150 Emery Results Last 24 Hours: Microbiology 12/20/18 19:10 Aerobic Blood Culture - Preliminary Blood - Venous - Lab Draw NO GROWTH AFTER 1 DAY Anaerobic Blood Culture - Preliminary NO GROWTH AFTER 1 DAY 12/20/18 19:00 Aerobic Blood Culture - Preliminary Blood - Venous NO GROWTH AFTER 1 DAY Anaerobic Blood Culture - Preliminary NO GROWTH AFTER 1 DAY Med Orders - Current: Current Medications Acetaminophen (Tylenol) 650 mg PO Q4H PRN PRN Reason: Pain (Mild 1-3)/fever Last Admin: 12/21/18 20:00 Dose: 650 mg Enoxaparin Sodium (Lovenox) 80 mg SUBCUT Q12H [facility] Last Admin: 12/22/18 03:56 Dose: 80 mg Ampicillin Sodium 2 gm/ Sodium (Chloride) 100 mls @ 200 mls/hr IV Q6H [facility] Last Admin: 12/22/18 03:55 Dose: 200 mls/hr Sodium Chloride (Normal Saline) 1,000 mls @ 50 mls/hr IV ASDIRECTED [facility], [facility] Last Admin: 12/22/18 04:07 Dose: 125 mls/hr Clindamycin Phosphate 900 mg/ (Premix) 50 mls @ 89.286 mls/hr IV Q8H [facility] Last Admin: 12/22/18 05:47 Dose: 89.286 mls/hr Ibuprofen (Motrin) 800 mg PO TID [facility] Last Admin: 12/22/18 05:46 Dose: 800 mg Oxycodone/Acetaminophen (Percocet 325-5 Mg) 2 tab PO Q4H PRN PRN Reason: Pain (moderate 4-6) Discontinued Medications Acetaminophen (Tylenol Extra Strength) 1,000 mg PO ONETIME ONE Stop: 12/20/18 20:04 Last Admin: 12/20/18 20:11 Dose: 1,000 mg Acetaminophen (Tylenol Extra Strength) Confirm Administered Dose 1,000 mg .ROUTE .STK-MED ONE Stop: 12/20/18 20:05 Last Admin: 12/20/18 20:13 Dose: Not Given Enoxaparin Sodium (Lovenox) 80 mg SUBCUT Q12H [facility] Last Admin: 12/22/18 00:29 Dose: Not Given Furosemide (Lasix) 20 mg IVPUSH ONETIME ONE Stop: 12/21/18 04:45 Last Admin: 12/21/18 05:01 Dose: 20 mg Heparin Sodium (Porcine) (Heparin Sodium) 5,000 units SUBCUT ONETIME ONE Stop: 12/21/18 08:20 Last Admin: 12/21/18 08:37 Dose: 5,000 units Ceftriaxone Sodium/Dextrose 1 (gm/ Premix) 50 mls @ 100 mls/hr IV ONETIME ONE Stop: 12/20/18 20:32 Last Admin: 12/20/18 20:11 Dose: 100 mls/hr Ceftriaxone Sodium/Dextrose (Rocephin In Dextrose,Iso-Osm 1 Gm/50 Ml) Confirm Administered Dose 50 mls @ as directed .ROUTE .STK-MED ONE Stop: 12/20/18 20:05 Last Admin: 12/20/18 20:13 Dose: Not Given Sodium Chloride (Normal Saline) 1,000 mls @ 999 mls/hr IV ASDIRECTED [facility] Last Admin: 12/20/18 23:05 Dose: Not Given Clindamycin Phosphate 900 mg/ (Premix) 50 mls @ 100 mls/hr IV ONETIME ONE Stop: 12/20/18 20:49 Last Admin: 12/20/18 22:37 Dose: 100 mls/hr Ampicillin Sodium 2 gm/ Sodium (Chloride) 100 mls @ 200 mls/hr IV ONETIME ONE Stop: 12/20/18 20:52 Last Admin: 12/20/18 21:52 Dose: 200 mls/hr Lactated Ringer's (Ringers, Lactated) 1,000 mls @ 125 mls/hr IV ASDIRECTED ONE Stop: 12/21/18 05:59 Last Admin: 12/20/18 22:37 Dose: 125 mls/hr Clindamycin Phosphate 900 mg/ (Sodium Chloride) 100 mls @ 178.571 mls/hr IV Q8H [facility] Last Admin: 12/22/18 00:29 Dose: Not Given Gentamicin Sulfate 390 mg/ (Sodium Chloride) 59.75 mls @ 100 mls/hr IV ONETIME ONE Stop: 12/20/18 22:35 Last Admin: 12/20/18 23:49 Dose: 100 mls/hr Gentamicin Sulfate 420 mg/ (Sodium Chloride) 110.5 mls @ 221 mls/hr IV ONETIME ONE Stop: 12/22/18 06:29 Last Admin: 12/22/18 06:52 Dose: 221 mls/hr Iopamidol (Isovue-370 (76%)) 100 ml IVPUSH ONETIME ONE Stop: 12/21/18 03:59 Last Admin: 12/21/18 04:13 Dose: 100 ml Ketorolac Tromethamine (Toradol) 60 mg IVPUSH ONETIME ONE Stop: 12/21/18 02:50 Last Admin: 12/21/18 03:00 Dose: 60 mg - Exam General: Alert, Oriented HEENT: Pupils Equal, Mucous Membr. Moist/[place] Neck: Supple Lungs: Clear to Auscultation, Normal Respiratory Effort Cardiovascular: Regular Rate, Regular Rhythm, No Murmurs GI/Abdominal Exam: Normal Bowel Sounds, Soft, Non-Tender, No Organomegaly, No Distention, No Abnormal Bruit, No Mass, Pelvis Stable Extremities: Normal Inspection, Normal Range of Motion, Non-Tender, No Pedal Edema, Normal Capillary Refill Skin: Warm, Dry, Intact Neurological: No New Focal Deficit Psy/Mental Status: Alert, Normal Affect, Normal Mood - Problem List Review Problem List Initiated/Reviewed/Updated: Yes - Assessment Assessment:: 33yo PPD16 S/p D&C POD1, fever Suspected septic pelvic thrombophlebitis based on spiking fever not responding to antibiotics Negative for PE, DVT Blood cultures negative CT normal - Plan Plan:: Normal diet IVF 125mL/hr Pain control PRN Continue antibiotics and heparin Plan to discharge after 48 hours no fever <Shawanda Bustamante - Last Filed: 12/22/18 10:18> - Patient Data Vitals - Most Recent: Last Vital Signs Temp 36.9 C 12/22/18 07:10 Pulse 94 12/22/18 07:10 Resp 16 12/22/18 07:10 BP 131/87 12/22/18 07:10 Pulse Ox 95 12/22/18 07:10 I&O - Last 24 Hours: Intake & Output 12/21/18 12/22/18 12/22/18 22:59 06:59 14:59 Intake Total 1747 1150 Output Total 2500 Balance -753 1150 Emery Results Last 24 Hours: Microbiology 12/20/18 18:55 Urine Culture - Final Urine, Clean Catch No Growth 12/20/18 19:10 Aerobic Blood Culture - Preliminary Blood - Venous - Lab Draw NO GROWTH AFTER 1 DAY Anaerobic Blood Culture - Preliminary NO GROWTH AFTER 1 DAY 12/20/18 19:00 Aerobic Blood Culture - Preliminary Blood - Venous NO GROWTH AFTER 1 DAY Anaerobic Blood Culture - Preliminary NO GROWTH AFTER 1 DAY Med Orders - Current: Current Medications Acetaminophen (Tylenol) 650 mg PO Q4H PRN PRN Reason: Pain (Mild 1-3)/fever Last Admin: 12/21/18 20:00 Dose: 650 mg Enoxaparin Sodium (Lovenox) 80 mg SUBCUT Q12H [facility] Last Admin: 12/22/18 03:56 Dose: 80 mg Ampicillin Sodium 2 gm/ Sodium (Chloride) 100 mls @ 200 mls/hr IV Q6H [facility] Last Admin: 12/22/18 10:10 Dose: 200 mls/hr Sodium Chloride (Normal Saline) 1,000 mls @ 50 mls/hr IV ASDIRECTED [facility] Last Admin: 12/22/18 04:07 Dose: 125 mls/hr Clindamycin Phosphate 900 mg/ (Premix) 50 mls @ 89.286 mls/hr IV Q8H [facility] Last Admin: 12/22/18 05:47 Dose: 89.286 mls/hr Ibuprofen (Motrin) 800 mg PO TID [facility] Last Admin: 12/22/18 05:46 Dose: 800 mg Oxycodone/Acetaminophen (Percocet 325-5 Mg) 2 tab PO Q4H PRN PRN Reason: Pain (moderate 4-6) Discontinued Medications Acetaminophen (Tylenol Extra Strength) 1,000 mg PO ONETIME ONE Stop: 12/20/18 20:04 Last Admin: 12/20/18 20:11 Dose: 1,000 mg Acetaminophen (Tylenol Extra Strength) Confirm Administered Dose 1,000 mg .ROUTE .STK-MED ONE Stop: 12/20/18 20:05 Last Admin: 12/20/18 20:13 Dose: Not Given Enoxaparin Sodium (Lovenox) 80 mg SUBCUT Q12H [facility] Last Admin: 12/22/18 00:29 Dose: Not Given Furosemide (Lasix) 20 mg IVPUSH ONETIME ONE Stop: 12/21/18 04:45 Last Admin: 12/21/18 05:01 Dose: 20 mg Heparin Sodium (Porcine) (Heparin Sodium) 5,000 units SUBCUT ONETIME ONE Stop: 12/21/18 08:20 Last Admin: 12/21/18 08:37 Dose: 5,000 units Ceftriaxone Sodium/Dextrose 1 (gm/ Premix) 50 mls @ 100 mls/hr IV ONETIME ONE Stop: 12/20/18 20:32 Last Admin: 12/20/18 20:11 Dose: 100 mls/hr Ceftriaxone Sodium/Dextrose (Rocephin In Dextrose,Iso-Osm 1 Gm/50 Ml) Confirm Administered Dose 50 mls @ as directed .ROUTE .STK-MED ONE Stop: 12/20/18 20:05 Last Admin: 12/20/18 20:13 Dose: Not Given Sodium Chloride (Normal Saline) 1,000 mls @ 999 mls/hr IV ASDIRECTED [facility] Last Admin: 12/20/18 23:05 Dose: Not Given Clindamycin Phosphate 900 mg/ (Premix) 50 mls @ 100 mls/hr IV ONETIME ONE Stop: 12/20/18 20:49 Last Admin: 12/20/18 22:37 Dose: 100 mls/hr Ampicillin Sodium 2 gm/ Sodium (Chloride) 100 mls @ 200 mls/hr IV ONETIME ONE Stop: 12/20/18 20:52 Last Admin: 12/20/18 21:52 Dose: 200 mls/hr Lactated Ringer's (Ringers, Lactated) 1,000 mls @ 125 mls/hr IV ASDIRECTED ONE Stop: 12/21/18 05:59 Last Admin: 12/20/18 22:37 Dose: 125 mls/hr Clindamycin Phosphate 900 mg/ (Sodium Chloride) 100 mls @ 178.571 mls/hr IV Q8H [facility] Last Admin: 12/22/18 00:29 Dose: Not Given Gentamicin Sulfate 390 mg/ (Sodium Chloride) 59.75 mls @ 100 mls/hr IV ONETIME ONE Stop: 12/20/18 22:35 Last Admin: 12/20/18 23:49 Dose: 100 mls/hr Gentamicin Sulfate 420 mg/ (Sodium Chloride) 110.5 mls @ 221 mls/hr IV ONETIME ONE Stop: 12/22/18 06:29 Last Admin: 12/22/18 06:52 Dose: 221 mls/hr Iopamidol (Isovue-370 (76%)) 100 ml IVPUSH ONETIME ONE Stop: 12/21/18 03:59 Last Admin: 12/21/18 04:13 Dose: 100 ml Ketorolac Tromethamine (Toradol) 60 mg IVPUSH ONETIME ONE Stop: 12/21/18 02:50 Last Admin: 12/21/18 03:00 Dose: 60 mg - My Orders Last 24 Hours: My Active Orders 12/22/18 10:00 CBC W/O DIFF,HEMOGRAM [HEME] AM - Assessment Assessment:: Patient was seen and examined by me and I agree with above. Reviewed normal CT , explained that we will keep her in patient until at least 48 afebrile, will continue on Lovenox after discharge. Recheck CBC today.
[2018-12-23] MEDS: Enoxaparin 100 MG/1 ML Syringe SUBCUT SCH ×2 (03:19→16:14)
[2018-12-23] MEDS: Ampicillin 2 GM in Sodium Chloride 0.9% 100 ML IV SCH ×3 (03:20→16:51)
--- NOTE | 2018-12-23 05:15 | PCM.PN ---
<Bibiana Alcantara - Last Filed: 12/23/18 05:16> - General Info Date of Service: 12/23/18 Functional Status: Reports: Pain Controlled - Review of Systems General: Reports: No Symptoms (Fatigue is improving. Florencia is starting to feel better overall). Denies: Fever, Chills HEENT: Reports: No Symptoms. Denies: Headaches Pulmonary: Reports: No Symptoms. Denies: Shortness of Breath Cardiovascular: Reports: No Symptoms. Denies: Chest Pain, Palpitations Gastrointestinal: Reports: No Symptoms. Denies: Abdominal Pain Genitourinary: Reports: No Symptoms. Denies: Dysuria Musculoskeletal: Reports: No Symptoms Skin: Reports: No Symptoms Neurological: Reports: No Symptoms Psychiatric: Reports: No Symptoms - Patient Data Vitals - Most Recent: Last Vital Signs Temp 97.5 F 12/23/18 04:00 Pulse 77 12/23/18 04:00 Resp 14 12/23/18 04:00 BP 127/78 12/23/18 04:00 Pulse Ox 97 12/23/18 04:00 Weight - Most Recent: 85.457 kg I&O - Last 24 Hours: Intake & Output 12/22/18 12/22/18 12/23/18 14:59 22:59 06:59 Intake Total 200 2090 1040 Output Total 850 1200 Balance 200 1240 -160 Lab Results Last 24 Hours: Laboratory Results - last 24 hr 12/22/18 Range/Units 10:20 WBC 8.66 (4.0-11.0) K/uL RBC 2.64 L (4.30-5.90) M/uL Hgb 7.8 L (12.0-16.0) g/dL Hct 23.3 L (36.0-46.0) % MCV 88.3 (80.0-98.0) fL MCH 29.5 (27.0-32.0) pg MCHC 33.5 (31.0-37.0) g/dL RDW Std Deviation 45.9 (28.0-62.0) fl RDW Coeff of Yocasta 14 (11.0-15.0) % Plt Count 232 (150-400) K/uL MPV 10.00 (7.40-12.00) fL Nucleated RBC % 0.0 /100WBC Nucleated RBCs # 0 K/uL Emery Results Last 24 Hours: Microbiology 12/20/18 19:10 Aerobic Blood Culture - Preliminary Blood - Venous - Lab Draw NO GROWTH AFTER 2 DAYS Anaerobic Blood Culture - Preliminary NO GROWTH AFTER 2 DAYS 12/20/18 19:00 Aerobic Blood Culture - Preliminary Blood - Venous NO GROWTH AFTER 2 DAYS Anaerobic Blood Culture - Preliminary NO GROWTH AFTER 2 DAYS 12/20/18 18:55 Urine Culture - Final Urine, Clean Catch No Growth Med Orders - Current: Current Medications Acetaminophen (Tylenol) 650 mg PO Q4H PRN PRN Reason: Pain (Mild 1-3)/fever Last Admin: 12/21/18 20:00 Dose: 650 mg Enoxaparin Sodium (Lovenox) 80 mg SUBCUT Q12H [facility] Last Admin: 12/23/18 03:19 Dose: 80 mg Ampicillin Sodium 2 gm/ Sodium (Chloride) 100 mls @ 200 mls/hr IV Q6H [facility] Last Admin: 12/23/18 03:20 Dose: 200 mls/hr Sodium Chloride (Normal Saline) 1,000 mls @ 50 mls/hr IV ASDIRECTED [facility] Last Admin: 12/22/18 15:59 Dose: 125 mls/hr Clindamycin Phosphate 900 mg/ (Premix) 50 mls @ 89.286 mls/hr IV Q8H [facility] Last Admin: 12/22/18 21:20 Dose: 89.286 mls/hr Ibuprofen (Motrin) 800 mg PO TID [facility] Last Admin: 12/22/18 21:18 Dose: 800 mg Oxycodone/Acetaminophen (Percocet 325-5 Mg) 2 tab PO Q4H PRN PRN Reason: Pain (moderate 4-6) Discontinued Medications Acetaminophen (Tylenol Extra Strength) 1,000 mg PO ONETIME ONE Stop: 12/20/18 20:04 Last Admin: 12/20/18 20:11 Dose: 1,000 mg Acetaminophen (Tylenol Extra Strength) Confirm Administered Dose 1,000 mg .ROUTE .STK-MED ONE Stop: 12/20/18 20:05 Last Admin: 12/20/18 20:13 Dose: Not Given Enoxaparin Sodium (Lovenox) 80 mg SUBCUT Q12H [facility] Last Admin: 12/22/18 00:29 Dose: Not Given Furosemide (Lasix) 20 mg IVPUSH ONETIME ONE Stop: 12/21/18 04:45 Last Admin: 12/21/18 05:01 Dose: 20 mg Heparin Sodium (Porcine) (Heparin Sodium) 5,000 units SUBCUT ONETIME ONE Stop: 12/21/18 08:20 Last Admin: 12/21/18 08:37 Dose: 5,000 units Ceftriaxone Sodium/Dextrose 1 (gm/ Premix) 50 mls @ 100 mls/hr IV ONETIME ONE Stop: 12/20/18 20:32 Last Admin: 12/20/18 20:11 Dose: 100 mls/hr Ceftriaxone Sodium/Dextrose (Rocephin In Dextrose,Iso-Osm 1 Gm/50 Ml) Confirm Administered Dose 50 mls @ as directed .ROUTE .STK-MED ONE Stop: 12/20/18 20:05 Last Admin: 12/20/18 20:13 Dose: Not Given Sodium Chloride (Normal Saline) 1,000 mls @ 999 mls/hr IV ASDIRECTED [facility] Last Admin: 12/20/18 23:05 Dose: Not Given Clindamycin Phosphate 900 mg/ (Premix) 50 mls @ 100 mls/hr IV ONETIME ONE Stop: 12/20/18 20:49 Last Admin: 12/20/18 22:37 Dose: 100 mls/hr Ampicillin Sodium 2 gm/ Sodium (Chloride) 100 mls @ 200 mls/hr IV ONETIME ONE Stop: 12/20/18 20:52 Last Admin: 12/20/18 21:52 Dose: 200 mls/hr Lactated Ringer's (Ringers, Lactated) 1,000 mls @ 125 mls/hr IV ASDIRECTED ONE Stop: 12/21/18 05:59 Last Admin: 12/20/18 22:37 Dose: 125 mls/hr Clindamycin Phosphate 900 mg/ (Sodium Chloride) 100 mls @ 178.571 mls/hr IV Q8H [facility] Last Admin: 12/22/18 00:29 Dose: Not Given Gentamicin Sulfate 390 mg/ (Sodium Chloride) 59.75 mls @ 100 mls/hr IV ONETIME ONE Stop: 12/20/18 22:35 Last Admin: 12/20/18 23:49 Dose: 100 mls/hr Gentamicin Sulfate 420 mg/ (Sodium Chloride) 110.5 mls @ 221 mls/hr IV ONETIME ONE Stop: 12/22/18 06:29 Last Admin: 12/22/18 06:52 Dose: 221 mls/hr Iopamidol (Isovue-370 (76%)) 100 ml IVPUSH ONETIME ONE Stop: 12/21/18 03:59 Last Admin: 12/21/18 04:13 Dose: 100 ml Ketorolac Tromethamine (Toradol) 60 mg IVPUSH ONETIME ONE Stop: 12/21/18 02:50 Last Admin: 12/21/18 03:00 Dose: 60 mg - Exam General: Alert, Oriented HEENT: Pupils Equal, Mucous Membr. Moist/[place] Neck: Supple Lungs: Clear to Auscultation, Normal Respiratory Effort Cardiovascular: Regular Rate, Regular Rhythm GI/Abdominal Exam: Normal Bowel Sounds, Soft, Non-Tender, No Organomegaly, No Distention, No Abnormal Bruit, No Mass, Pelvis Stable (Female) Exam: Deferred Extremities: Normal Inspection, Normal Range of Motion, Non-Tender, No Pedal Edema, Normal Capillary Refill Skin: Warm, Dry, Intact Neurological: No New Focal Deficit Psy/Mental Status: Alert, Normal Affect, Normal Mood - Problem List Review Problem List Initiated/Reviewed/Updated: Yes - Assessment Assessment:: 33yo PPD17 S/p D&C POD1, fever Suspected septic pelvic thrombophlebitis Negative for PE, DVT, and blood cultures. CT normal Patient feeling better overall. Has been afebrile since 12/21 night. Will continue on Lovenox after discharge. Recheck CBC today. - Plan Plan:: Normal diet IVF 125mL/hr Pain control PRN Continue antibiotics and Lovenox Plan to discharge after 48 hours no fever <Shawanda Bustamante - Last Filed: 12/23/18 13:27> - Patient Data Vitals - Most Recent: Last Vital Signs Temp 36 C 12/23/18 07:10 Pulse 85 12/23/18 07:10 Resp 16 12/23/18 07:10 BP 132/87 12/23/18 07:10 Pulse Ox 96 12/23/18 07:10 I&O - Last 24 Hours: Intake & Output 12/22/18 12/23/18 12/23/18 22:59 06:59 14:59 Intake Total 2090 2090 Output Total 850 1200 Balance 1240 890 Emery Results Last 24 Hours: Microbiology 12/20/18 19:00 Aerobic Blood Culture - Preliminary Blood - Venous NO GROWTH AFTER 2 DAYS Anaerobic Blood Culture - Preliminary NO GROWTH AFTER 2 DAYS 12/20/18 19:10 Aerobic Blood Culture - Preliminary Blood - Venous - Lab Draw NO GROWTH AFTER 2 DAYS Anaerobic Blood Culture - Preliminary NO GROWTH AFTER 2 DAYS 12/20/18 18:55 Urine Culture - Final Urine, Clean Catch No Growth Med Orders - Current: Current Medications Acetaminophen (Tylenol) 650 mg PO Q4H PRN PRN Reason: Pain (Mild 1-3)/fever Last Admin: 12/21/18 20:00 Dose: 650 mg Enoxaparin Sodium (Lovenox) 80 mg SUBCUT Q12H [facility] Last Admin: 12/23/18 03:19 Dose: 80 mg Ampicillin Sodium 2 gm/ Sodium (Chloride) 100 mls @ 200 mls/hr IV Q6H [facility] Last Admin: 12/23/18 10:31 Dose: 200 mls/hr Sodium Chloride (Normal Saline) 1,000 mls @ 50 mls/hr IV ASDIRECTED [facility] Last Admin: 12/23/18 05:36 Dose: 125 mls/hr Clindamycin Phosphate 900 mg/ (Premix) 50 mls @ 89.286 mls/hr IV Q8H [facility] Last Admin: 12/23/18 05:37 Dose: 89.286 mls/hr Ibuprofen (Motrin) 800 mg PO TID [facility] Last Admin: 12/23/18 05:36 Dose: 800 mg Oxycodone/Acetaminophen (Percocet 325-5 Mg) 2 tab PO Q4H PRN PRN Reason: Pain (moderate 4-6) Discontinued Medications Acetaminophen (Tylenol Extra Strength) 1,000 mg PO ONETIME ONE Stop: 12/20/18 20:04 Last Admin: 12/20/18 20:11 Dose: 1,000 mg Acetaminophen (Tylenol Extra Strength) Confirm Administered Dose 1,000 mg .ROUTE .STK-MED ONE Stop: 12/20/18 20:05 Last Admin: 12/20/18 20:13 Dose: Not Given Enoxaparin Sodium (Lovenox) 80 mg SUBCUT Q12H [facility] Last Admin: 12/22/18 00:29 Dose: Not Given Furosemide (Lasix) 20 mg IVPUSH ONETIME ONE Stop: 12/21/18 04:45 Last Admin: 12/21/18 05:01 Dose: 20 mg Heparin Sodium (Porcine) (Heparin Sodium) 5,000 units SUBCUT ONETIME ONE Stop: 12/21/18 08:20 Last Admin: 12/21/18 08:37 Dose: 5,000 units Ceftriaxone Sodium/Dextrose 1 (gm/ Premix) 50 mls @ 100 mls/hr IV ONETIME ONE Stop: 12/20/18 20:32 Last Admin: 12/20/18 20:11 Dose: 100 mls/hr Ceftriaxone Sodium/Dextrose (Rocephin In Dextrose,Iso-Osm 1 Gm/50 Ml) Confirm Administered Dose 50 mls @ as directed .ROUTE .STK-MED ONE Stop: 12/20/18 20:05 Last Admin: 12/20/18 20:13 Dose: Not Given Sodium Chloride (Normal Saline) 1,000 mls @ 999 mls/hr IV ASDIRECTED [facility] Last Admin: 12/20/18 23:05 Dose: Not Given Clindamycin Phosphate 900 mg/ (Premix) 50 mls @ 100 mls/hr IV ONETIME ONE Stop: 12/20/18 20:49 Last Admin: 12/20/18 22:37 Dose: 100 mls/hr Ampicillin Sodium 2 gm/ Sodium (Chloride) 100 mls @ 200 mls/hr IV ONETIME ONE Stop: 12/20/18 20:52 Last Admin: 12/20/18 21:52 Dose: 200 mls/hr Lactated Ringer's (Ringers, Lactated) 1,000 mls @ 125 mls/hr IV ASDIRECTED ONE Stop: 12/21/18 05:59 Last Admin: 12/20/18 22:37 Dose: 125 mls/hr Clindamycin Phosphate 900 mg/ (Sodium Chloride) 100 mls @ 178.571 mls/hr IV Q8H [facility] Last Admin: 12/22/18 00:29 Dose: Not Given Gentamicin Sulfate 390 mg/ (Sodium Chloride) 59.75 mls @ 100 mls/hr IV ONETIME ONE Stop: 12/20/18 22:35 Last Admin: 12/20/18 23:49 Dose: 100 mls/hr Gentamicin Sulfate 420 mg/ (Sodium Chloride) 110.5 mls @ 221 mls/hr IV ONETIME ONE Stop: 12/22/18 06:29 Last Admin: 12/22/18 06:52 Dose: 221 mls/hr Iopamidol (Isovue-370 (76%)) 100 ml IVPUSH ONETIME ONE Stop: 12/21/18 03:59 Last Admin: 12/21/18 04:13 Dose: 100 ml Ketorolac Tromethamine (Toradol) 60 mg IVPUSH ONETIME ONE Stop: 12/21/18 02:50 Last Admin: 12/21/18 03:00 Dose: 60 mg - Problem List Review Problem List Initiated/Reviewed/Updated: Yes - Assessment Assessment:: Patient was seen and examined by me and I agree with above. Will complete Lovenox dose this after noon, if she remains afebrile will discharge to home. Normal WBC today and feeling much better. Discussed anemia and provided options of Oral iron, IV iron prior to discharge or blood transfusion. She denies shortness of breath or chest pain, no dizziness, reports mild headache. She prefers to take oral iron. I explained that since our final diagnosis is septic pelvic thrombophlebitis, the treatment is blood thinners, rather than antibiotics, will complete antibiotics until discharge, but she will not need to go home on antibiotics. She has scheduled appointment with Dr. Tai in about 10 days, will call for temp over 100.5, increased pain or bleeding or other concerns in the meantime.
[2018-12-23] MEDS: Ibuprofen 800 MG Tab PO SCH ×2 (05:36→15:49)
[2018-12-23] MEDS: Sodium Chloride 0.9% 1,000 ML IV SCH (05:36)
[2018-12-23] MEDS: Clindamycin Phosphate in D5W 900 MG in Premix Bag 1 BAG IV SCH ×4 (05:37→15:36)
--- NOTE | 2018-12-24 13:29 | DISCH ---
DATE OF DISCHARGE: 12/23/2018 PRIMARY CARE PHYSICIAN: Cathy Tai M.D. CHIEF COMPLAINT: Fever after delivery. HISTORY OF PRESENT ILLNESS: This is a 33-year-old female. She had spontaneous vaginal delivery on December 05. She had a D and C on December 19 for retained products of conception and presented to the hospital with fever at home of 102 to 104, complained of chills. She denies heavy vaginal bleeding. She has stopped breast-feeding. She has used a tight bra to help with stopping . Initially, her blood pressure is 120s to 140s over 70s to 80s. Heart rate ranging from 99 to 118, temperature from 37.9 up to 39.1, and she was admitted for IV antibiotics and further evaluation. Blood cultures were obtained and were negative. She was started on ampicillin, gentamicin, and clindamycin, and initially on heparin 5000 units subcu for prophylaxis. It was noted that the pattern of her fever was intermittent with episodes of a normal temperature with intermittent high spikes greater than 39.1, despite the antibiotic therapy. Additionally, her laboratory studies showed a very mildly elevated white count of 12,000. She was found to be anemic, which was expected, given her postoperative state. Evaluation included a chest x-ray, which showed no acute pulmonary consolidation. She had an angiography, which showed no evidence of pulmonary embolism, trace pleural effusions. Venous Doppler studies were negative for deep venous thrombosis in both legs, and a CT of the pelvis showed normal postop change without any evidence of abscess or other findings to explain the etiology of her fever. Given the clinical picture, it was suspected that she may have septic pelvic thrombophlebitis, which would cause the intermittent spiking temperatures in a patient. Therefore, in addition to her antibiotics, she was started on treatment dose Lovenox 80 mg subcu q.12 hours. Following the initiation of the Lovenox, she remained afebrile. She was continued on the antibiotics, and after she was afebrile for approximately 48 hours, the antibiotics were discontinued and she will be dismissed to home on the Lovenox. Please see exam and counseling from the progress note on day of discharge for further details. FINAL DIAGNOSIS: Septic pelvic thrombophlebitis. PROCEDURES: None. DISCHARGE MEDICATIONS: vitamins, [id number] iron supplement with vitamin C twice per day, and Lovenox 80 mg b.i.d. for a total of 6 weeks. DISCHARGE INSTRUCTIONS: She will keep her appointment in approximately [address] Tai. She is instructed nothing per vagina for 4 weeks. Continue vitamins for 4 weeks. Take [id number] iron with vitamin C twice per day. Call if temp over 100.5, increasing pain, or bleeding. Keep her appointment with Dr. Tai as scheduled and do not take ibuprofen, aspirin, or other medications that would cause additional thinning of her blood. JES / KAMRON /[id number]
== END 2018-12-23 16:45 | disposition home or self-care (01) ==
LOC: MW.ED 18:19 → MW.MS 20:54
PROVIDERS: ADMIT Obstetrics & Gynecology; ATTEND Obstetrics & Gynecology
DX: O86.81 Puerperal septic thrombophlebitis (principal); Z88.2 Allergy status to sulfonamides; Z87.891 Personal history of nicotine dependence
CPT/HCPCS: 36415; 71046; 71275; 74178; 76856; 80053; 80170; 81001; 83605; 85025; 85027; 87040; 87070; 87086; 93970; 96361; 96365; 96366; 96367; 96372; 96375; 96376; 99284; A9270; G0378; J0290; J0696; J1580; J1644; J1650; J1885; J3490; J7030; J7040; J7050; J7120; Q9967; 99283

== ENCOUNTER 2019-01-05 16:25 | Inpatient (IN) | payer BC ==
[2019-01-05] MEDS ORDERED: Sodium Chloride 0.9% 10 ML Syringe FLUSH PRN (16:56)
[2019-01-05] MEDS ORDERED: Sodium Chloride 0.9% 1,000 ML IV ONE (16:56)
[2019-01-05] MEDS ORDERED: Sodium Chloride 0.9% 2.5 ML Syringe FLUSH PRN (16:56)
--- NOTE | 2019-01-05 16:57 | EDM.PDOC ---
ED HPI GENERAL MEDICAL PROBLEM - General Chief Complaint: Cardiovascular Problem Stated Complaint: SHORTNESS OF BREATH, SENT BY DR GAGE Time Seen by Provider: 01/05/19 16:56 Source of Information: Reports: Patient History Limitations: Reports: No Limitations - History of Present Illness INITIAL COMMENTS - FREE TEXT/NARRATIVE: HISTORY AND PHYSICAL: History of present illness: Patient is a 33-year-old female presents to the ED with complaint of shortness of breath. Patient is 1 month post vaginal delivery. Patient had a D&C on 12/19 for retained products. States she developed fevers post and was diagnosed with septic pelvis thrombosis, discharged from the hospital 2 weeks ago on lovenox. Patient states that today she developed shortness of breath. 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 Patient has continued to have vaginal bleeding and states recently it has been heavier and she's changing a large pad every 1.5 hours. She denies chest pain, abdominal pain, nausea, vomiting, diarrhea, headache, calf pain. Review of systems: As per history of present illness and below otherwise all systems reviewed and negative. Past medical history: As per history of present illness and as reviewed below otherwise noncontributory. Surgical history: As per history of present illness and as reviewed below otherwise noncontributory. Social history: No reported history of drug or alcohol abuse. Family history: As per history of present illness and as reviewed below otherwise noncontributory. Physical exam: General: Patient sitting comfortably in no acute distress and nontoxic appearing. Patient appears pale HEENT: Atraumatic, normocephalic, pupils reactive, negative for conjunctival pallor or scleral icterus, mucous membranes moist, throat clear, neck supple, nontender, trachea midline. No meningeal signs. Lungs: Clear to auscultation, breath sounds equal bilaterally, chest nontender. Heart: Tachycardic, S1S2, negative for clicks, rubs, or overt murmur. Abdomen: Soft, nondistended, nontender. Negative for masses or hepatosplenomegaly. Negative for costovertebral tenderness. No rigidity, rebound , guarding. Pelvis: Stable nontender. Genitourinary: Deferred. Rectal: Deferred. Extremities: Atraumatic, negative for cords or calf pain. Neurovascular unremarkable. Neuro: Awake, alert, oriented. Cranial nerves II through XII unremarkable. Cerebellum unremarkable. Motor and sensory unremarkable throughout. Exam nonfocal. Notes: 1720: Discussed with Dr. Gage, she will consult the patient in the ED. Diagnostics: CBC, CMP, PT/INR, CXR, Type & screen Therapeutics: 1L NS IV Prescriptions: Impression: Vaginal bleeding, anemia Plan: Discussed with Dr. Gage, patient will be admitted to observation Definitive disposition and diagnosis as appropriate pending reevaluation and review of above. 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: Musculoskeletal History: Reports: None Neurological History: Reports: None Psychiatric History: Reports: None Endocrine/Metabolic History: Reports: Obesity/BMI 30+ Hematologic History: Reports: Other (See Below) Other Hematologic History: thrombophlebitis, on lovenox Immunologic History: Reports: None Oncologic (Cancer) History: Reports: None Dermatologic History: Reports: None - Infectious Disease History Infectious Disease History: Reports: Chicken Pox - Past Surgical History Head Surgeries/Procedures: Reports: None HEENT Surgical History: Reports: None Cardiovascular Surgical History: Reports: None, Other (See Below) Other Cardiovascular Surgeries/Procedures: blood clot Respiratory Surgical History: Reports: None GI Surgical History: Reports: None Female Surgical History: Reports: D&C Endocrine Surgical History: Reports: None Neurological Surgical History: Reports: None Musculoskeletal Surgical History: Reports: None Oncologic Surgical History: Reports: None Dermatological Surgical History: Reports: None Social & Family History - Family History Family Medical History: Noncontributory Cardiac: Reports: Hypertension OBGYN: Reports: Neurological: Reports: Alzheimers Disease Endocrine/Metabolic: Reports: Diabetes, type II Oncologic: Reports: Other (See Below) Other Oncologic Family History: soft tissue cancer; mother had BRCA gene and double mastectomy - Tobacco Use Smoking Status *Q: Never Smoker - Caffeine Use Caffeine Use: Reports: Coffee, Soda, Tea - Recreational Drug Use Recreational Drug Use: No ED ROS GENERAL - Review of Systems Review Of Systems: ROS reveals no pertinent complaints other than HPI. ED EXAM, GENERAL - Physical Exam Exam: See Below (see dictation) Course - Vital Signs Last Recorded V/S: Last Vital Signs Temp 98.0 F 01/05/19 16:34 Pulse 148 H 01/05/19 16:34 Resp 13 01/05/19 18:08 BP 135/71 01/05/19 18:08 Pulse Ox 97 01/05/19 18:08 - Orders/Labs/Meds Orders: Active Orders 24 hr Category Date Time Status EKG 12 Lead [EKG Documentation Completion] [RC] STAT Care 01/05/19 16:34 Active Notify Provider Consults [RC] ASDIRECTED Care 01/05/19 17:52 Active Consult to Physician [CONS] Stat Cons 01/05/19 17:52 Active Sodium Chloride 0.9% [Saline Flush] Med 01/05/19 16:56 Active 10 ml FLUSH ASDIRECTED PRN Sodium Chloride 0.9% [Saline Flush] Med 01/05/19 16:56 Active 2.5 ml FLUSH ASDIRECTED PRN Saline Lock Insert [OM.PC] Stat Oth 01/05/19 16:56 Ordered Medication Orders Sodium Chloride (Saline Flush) 10 ml FLUSH ASDIRECTED PRN PRN Reason: Keep Vein Open Sodium Chloride (Saline Flush) 2.5 ml FLUSH ASDIRECTED PRN PRN Reason: Keep Vein Open Labs: Laboratory Tests 01/05/19 01/05/19 01/05/19 Range/Units 15:21 16:35 16:35 WBC 9.73 (4.0-11.0) K/uL RBC 2.90 L (4.30-5.90) M/uL Hgb 8.6 L (12.0-16.0) g/dL Hct 26.9 L (36.0-46.0) % MCV 92.8 (80.0-98.0) fL MCH 29.7 (27.0-32.0) pg MCHC 32.0 (31.0-37.0) g/dL RDW Std Deviation 60.8 (28.0-62.0) fl RDW Coeff of Yocasta 18 H (11.0-15.0) % Plt Count 456 H (150-400) K/uL MPV 10.00 (7.40-12.00) fL Neut % (Auto) 76.6 (48.0-80.0) % Lymph % (Auto) 17.4 (16.0-40.0) % [place] % (Auto) 5.4 (0.0-15.0) % Eos % (Auto) 0.2 (0.0-7.0) % Baso % (Auto) 0.4 (0.0-1.5) % Neut # (Auto) 7.5 H (1.4-5.7) K/uL Lymph # (Auto) 1.7 (0.6-2.4) K/uL [place] # (Auto) 0.5 (0.0-0.8) K/uL Eos # (Auto) 0.0 (0.0-0.7) K/uL Baso # (Auto) 0.0 (0.0-0.1) K/uL Nucleated RBC % 0.0 /100WBC Nucleated RBCs # 0 K/uL INR 0.96 Sodium (136-145) mmol/L Potassium (3.5-5.1) mmol/L Chloride (98-107) mmol/L Carbon Dioxide (21.0-32.0) mmol/L BUN (7.0-18.0) mg/dL Creatinine (0.6-1.0) mg/dL Est Cr Clr Drug Dosing mL/min Estimated GFR (MDRD) ml/min Glucose (74-106) mg/dL Calcium (8.5-10.1) mg/dL Total Bilirubin (0.2-1.0) mg/dL AST (15-37) IU/L ALT (14-63) IU/L Alkaline Phosphatase (46-116) U/L Total Protein (6.4-8.2) g/dL Albumin (3.4-5.0) g/dL Globulin (2.6-4.0) g/dL Albumin/Globulin Ratio (0.9-1.6) Urine Color Urine Appearance Urine pH (5.0-8.0) Ur Specific [place] (1.001-1.035) Urine Protein (NEGATIVE) mg/dL Urine Glucose (UA) (NEGATIVE) mg/dL Urine Ketones (NEGATIVE) mg/dL Urine Occult Blood (NEGATIVE) Urine Nitrite (NEGATIVE) Urine Bilirubin (NEGATIVE) Urine Urobilinogen (<2.0) EU/dL Ur Leukocyte Esterase (NEGATIVE) Urine RBC (0-2/HPF) Urine WBC (0-5/HPF) Ur Epithelial Cells (NONE-FEW) Amorphous Sediment (NEGATIVE) Urine Bacteria (NEGATIVE) Urinalysis Comment Blood Type O POSITIVE Antibody Screen NEGATIVE 01/05/19 01/05/19 Range/Units 16:35 17:30 WBC (4.0-11.0) K/uL RBC (4.30-5.90) M/uL Hgb (12.0-16.0) g/dL Hct (36.0-46.0) % MCV (80.0-98.0) fL MCH (27.0-32.0) pg MCHC (31.0-37.0) g/dL RDW Std Deviation (28.0-62.0) fl RDW Coeff of Yocasta (11.0-15.0) % Plt Count (150-400) K/uL MPV (7.40-12.00) fL Neut % (Auto) (48.0-80.0) % Lymph % (Auto) (16.0-40.0) % [place] % (Auto) (0.0-15.0) % Eos % (Auto) (0.0-7.0) % Baso % (Auto) (0.0-1.5) % Neut # (Auto) (1.4-5.7) K/uL Lymph # (Auto) (0.6-2.4) K/uL [place] # (Auto) (0.0-0.8) K/uL Eos # (Auto) (0.0-0.7) K/uL Baso # (Auto) (0.0-0.1) K/uL Nucleated RBC % /100WBC Nucleated RBCs # K/uL INR Sodium 143 (136-145) mmol/L Potassium 3.7 (3.5-5.1) mmol/L Chloride 105 (98-107) mmol/L Carbon Dioxide 24.2 (21.0-32.0) mmol/L BUN 13 (7.0-18.0) mg/dL Creatinine 0.8 (0.6-1.0) mg/dL Est Cr Clr Drug Dosing 87.18 mL/min Estimated GFR (MDRD) > 60.0 ml/min Glucose 117 H (74-106) mg/dL Calcium 9.4 (8.5-10.1) mg/dL Total Bilirubin 0.2 (0.2-1.0) mg/dL AST 29 (15-37) IU/L ALT 39 (14-63) IU/L Alkaline Phosphatase 99 (46-116) U/L Total Protein 7.0 (6.4-8.2) g/dL Albumin 3.4 (3.4-5.0) g/dL Globulin 3.6 (2.6-4.0) g/dL Albumin/Globulin Ratio 0.9 (0.9-1.6) Urine Color RED Urine Appearance CLOUDY Urine pH 6.0 (5.0-8.0) Ur Specific [place] >= 1.030 (1.001-1.035) Urine Protein 30 H (NEGATIVE) mg/dL Urine Glucose (UA) NEGATIVE (NEGATIVE) mg/dL Urine Ketones NEGATIVE (NEGATIVE) mg/dL Urine Occult Blood LARGE H (NEGATIVE) Urine Nitrite NEGATIVE (NEGATIVE) Urine Bilirubin NEGATIVE (NEGATIVE) Urine Urobilinogen 0.2 (<2.0) EU/dL Ur Leukocyte Esterase NEGATIVE (NEGATIVE) Urine RBC TOO NUMEROUS TO CT H (0-2/HPF) Urine WBC 3-6 (0-5/HPF) Ur Epithelial Cells RARE (NONE-FEW) Amorphous Sediment HEAVY (NEGATIVE) Urine Bacteria RARE (NEGATIVE) Urinalysis Comment Blood Type Antibody Screen Meds: Medications Generic Name Dose Route Start Last Admin Trade Name Freq PRN Reason Stop Dose Admin Sodium Chloride 10 ml 01/05/19 16:56 Saline Flush FLUSH ASDIRECTED PRN Keep Vein Open Sodium Chloride 2.5 ml 01/05/19 16:56 Saline Flush FLUSH ASDIRECTED PRN Keep Vein Open Discontinued Medications Generic Name Dose Route Start Last Admin Trade Name Freq PRN Reason Stop Dose Admin Sodium Chloride 1,000 mls @ 999 mls/hr 01/05/19 16:56 01/05/19 17:43 Normal Saline IV 01/05/19 17:56 999 mls/hr STAT ONE Administration Departure - Departure Time of Disposition: 18:41 Disposition: Refer to Observation Condition: Good Clinical Impression: Anemia, Vaginal delivery Referrals: PCP,Unknown [Primary Care Provider] - Forms: ED Department Discharge - My Orders Last 24 Hours: My Active Orders 01/05/19 16:34 EKG 12 Lead [EKG Documentation Completion] [RC] STAT 01/05/19 16:56 Sodium Chloride 0.9% [Saline Flush] 10 ml FLUSH ASDIRECTED PRN Sodium Chloride 0.9% [Saline Flush] 2.5 ml FLUSH ASDIRECTED PRN Saline Lock Insert [OM.PC] Stat 01/05/19 17:52 Notify Provider Consults [RC] ASDIRECTED Consult to Physician [CONS] Stat - Assessment/Plan Last 24 Hours: My Active Orders 01/05/19 16:34 EKG 12 Lead [EKG Documentation Completion] [RC] STAT 01/05/19 16:56 Sodium Chloride 0.9% [Saline Flush] 10 ml FLUSH ASDIRECTED PRN Sodium Chloride 0.9% [Saline Flush] 2.5 ml FLUSH ASDIRECTED PRN Saline Lock Insert [OM.PC] Stat 01/05/19 17:52 Notify Provider Consults [RC] ASDIRECTED Consult to Physician [CONS] Stat
[2019-01-05 17:15] LABS: CHLORIDE,CL 105 mmol/L (98-107); SODIUM,NA 143 mmol/L (136-145)
--- NOTE | 2019-01-05 17:34 | CR ---
INDICATION: Chest pain and SOB. TECHNIQUE: PA and lateral. COMPARISON: 12/20/2018. FINDINGS: Lungs and pleural spaces clear. Heart size and pulmonary vasculature within normal limits. No significant osseous abnormality. IMPRESSION: Negative chest. Dictated by Chuy Byrd MD @ Jan 05 2019 5:32PM Signed by Dr. Chuy Byrd @ Jan 05 2019 5:34PM
[2019-01-05] MEDS ORDERED: Acetaminophen 325 MG Tab PO PRN (18:44)
[2019-01-05] MEDS ORDERED: Ondansetron 4 MG Tab.DIS PO PRN (18:44)
--- NOTE | 2019-01-05 19:25 | PCM.HP.2 ---
H&P History of Present Illness - General Date of Service: 01/05/19 Admit Problem/Dx: Admission Diagnosis/Problem Admission Diagnosis/Problem Anemia due to blood loss - History of Present Illness Initial Comments - Free Text/Narative: 33yo female with Hx of on December 05 and D&C on December 19 for retained placenta, complicated by septic pelvic thrombophlebitis presenting with vaginal bleeding and anemia. Patient was admitted 12/20 to 12/23 for SPT and completed course of antibiotics and is on therapeutic lovenox. She reports increased vaginal bleeding the since yesterday, soaking a pad every 1-2hours. She has fatigue, dizziness and SOB when ambulating. Hgb collected in clinic on 01/02 was 10.1. She denies any fever or chills. - Related Data Allergies/Adverse Reactions: Allergies Allergy/AdvReac Type Severity Reaction Status Date / Time Sulfa (Sulfonamide Allergy Anaphylactic Verified 01/05/19 16:36 Antibiotics) Shock Home Medications: Home Meds Enoxaparin [Lovenox] 80 mg SUBCUT Q12H 45 Days #60 syringe 12/23/18 [Rx] Iron,Carbonyl/Vit C/Vit B12/Fa [Iron 100 Plus Tablet] 1 each PO 01/05/19 [ History] Past Medical History HEENT History: Reports: Other (See Below) Other HEENT History: wears glasses Cardiovascular History: Reports: None Respiratory History: Reports: None Gastrointestinal History: Reports: None Genitourinary History: 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 History: Reports: None Neurological History: Reports: None Psychiatric History: Reports: None Endocrine/Metabolic History: Reports: Obesity/BMI 30+ Hematologic History: Reports: Other (See Below) Other Hematologic History: thrombophlebitis, on lovenox Immunologic History: Reports: None Oncologic (Cancer) History: Reports: None Dermatologic History: Reports: None - Infectious Disease History Infectious Disease History: Reports: Chicken Pox - Past Surgical History Head Surgeries/Procedures: Reports: None HEENT Surgical History: Reports: None Cardiovascular Surgical History: Reports: None, Other (See Below) Other Cardiovascular Surgeries/Procedures: blood clot Respiratory Surgical History: Reports: None GI Surgical History: Reports: None Female Surgical History: Reports: D&C Endocrine Surgical History: Reports: None Neurological Surgical History: Reports: None Musculoskeletal Surgical History: Reports: None Oncologic Surgical History: Reports: None Dermatological Surgical History: Reports: None Social & Family History - Family History Family Medical History: Noncontributory Cardiac: Reports: Hypertension OBGYN: Reports: Neurological: Reports: Alzheimers Disease Endocrine/Metabolic: Reports: Diabetes, type II Oncologic: Reports: Other (See Below) Other Oncologic Family History: soft tissue cancer; mother had BRCA gene and double mastectomy - Tobacco Use Smoking Status *Q: Never Smoker - Caffeine Use Caffeine Use: Reports: Coffee, Soda, Tea - Recreational Drug Use Recreational Drug Use: No H&P Review of Systems - Review of Systems: Review Of Systems: See Below General: Reports: Weakness, Fatigue HEENT: Reports: No Symptoms Pulmonary: Reports: Shortness of Breath (when ambulating) Cardiovascular: Reports: Lightheadedness Gastrointestinal: Reports: No Symptoms Genitourinary: Reports: Other (heavy vaginal bleeding) Musculoskeletal: Reports: No Symptoms Psychiatric: Reports: No Symptoms Neurological: Reports: No Symptoms Exam - Exam Exam: See Below - Vital Signs Vital Signs: Last Vital Signs Temp 36.7 C 01/05/19 16:34 Pulse 148 H 01/05/19 16:34 Resp 13 01/05/19 18:08 BP 135/71 01/05/19 18:08 Pulse Ox 97 01/05/19 18:08 Weight: 175 lb - Exam General: Alert, Oriented HEENT: Conjunctiva Clear, Pupils Equal, Pupils Reactive Lungs: Clear to Auscultation, Normal Respiratory Effort Cardiovascular: Regular Rhythm, Tachycardia GI/Abdominal Exam: Normal Bowel Sounds, Soft, Non-Tender. No: Distended, Guarding, Rebound (Female) Exam: Vaginal Bleeding. No: Adnexal Mass (Uterus not enlarged), Adnexal Tenderness Extremities: Normal Inspection, Non-Tender, No Pedal Edema Psychiatric: Alert, Normal Affect, Normal Mood - Patient Data Lab Results Last 24 hrs: Laboratory Results - last 24 hr 01/05/19 01/05/19 01/05/19 Range/Units 15:21 16:35 16:35 WBC 9.73 (4.0-11.0) K/uL RBC 2.90 L (4.30-5.90) M/uL Hgb 8.6 L (12.0-16.0) g/dL Hct 26.9 L (36.0-46.0) % MCV 92.8 (80.0-98.0) fL MCH 29.7 (27.0-32.0) pg MCHC 32.0 (31.0-37.0) g/dL RDW Std Deviation 60.8 (28.0-62.0) fl RDW Coeff of [place] 18 H (11.0-15.0) % Plt Count 456 H (150-400) K/uL MPV 10.00 (7.40-12.00) fL Neut % (Auto) 76.6 (48.0-80.0) % Lymph % (Auto) 17.4 (16.0-40.0) % [place] % (Auto) 5.4 (0.0-15.0) % Eos % (Auto) 0.2 (0.0-7.0) % Baso % (Auto) 0.4 (0.0-1.5) % Neut # (Auto) 7.5 H (1.4-5.7) K/uL Lymph # (Auto) 1.7 (0.6-2.4) K/uL [place] # (Auto) 0.5 (0.0-0.8) K/uL Eos # (Auto) 0.0 (0.0-0.7) K/uL Baso # (Auto) 0.0 (0.0-0.1) K/uL Nucleated RBC % 0.0 /100WBC Nucleated RBCs # 0 K/uL INR 0.96 Sodium (136-145) mmol/L Potassium (3.5-5.1) mmol/L Chloride (98-107) mmol/L Carbon Dioxide (21.0-32.0) mmol/L BUN (7.0-18.0) mg/dL Creatinine (0.6-1.0) mg/dL Est Cr Clr Drug Dosing mL/min Estimated GFR (MDRD) ml/min Glucose (74-106) mg/dL Calcium (8.5-10.1) mg/dL Total Bilirubin (0.2-1.0) mg/dL AST (15-37) IU/L ALT (14-63) IU/L Alkaline Phosphatase (46-116) U/L Total Protein (6.4-8.2) g/dL Albumin (3.4-5.0) g/dL Globulin (2.6-4.0) g/dL Albumin/Globulin Ratio (0.9-1.6) Urine Color Urine Appearance Urine pH (5.0-8.0) Ur Specific [place] (1.001-1.035) Urine Protein (NEGATIVE) mg/dL Urine Glucose (UA) (NEGATIVE) mg/dL Urine Ketones (NEGATIVE) mg/dL Urine Occult Blood (NEGATIVE) Urine Nitrite (NEGATIVE) Urine Bilirubin (NEGATIVE) Urine Urobilinogen (<2.0) EU/dL Ur Leukocyte Esterase (NEGATIVE) Urine RBC (0-2/HPF) Urine WBC (0-5/HPF) Ur Epithelial Cells (NONE-FEW) Amorphous Sediment (NEGATIVE) Urine Bacteria (NEGATIVE) Urinalysis Comment Blood Type O POSITIVE Antibody Screen NEGATIVE 01/05/19 01/05/19 Range/Units 16:35 17:30 WBC (4.0-11.0) K/uL RBC (4.30-5.90) M/uL Hgb (12.0-16.0) g/dL Hct (36.0-46.0) % MCV (80.0-98.0) fL MCH (27.0-32.0) pg MCHC (31.0-37.0) g/dL RDW Std Deviation (28.0-62.0) fl RDW Coeff of [place] (11.0-15.0) % Plt Count (150-400) K/uL MPV (7.40-12.00) fL Neut % (Auto) (48.0-80.0) % Lymph % (Auto) (16.0-40.0) % [place] % (Auto) (0.0-15.0) % Eos % (Auto) (0.0-7.0) % Baso % (Auto) (0.0-1.5) % Neut # (Auto) (1.4-5.7) K/uL Lymph # (Auto) (0.6-2.4) K/uL [place] # (Auto) (0.0-0.8) K/uL Eos # (Auto) (0.0-0.7) K/uL Baso # (Auto) (0.0-0.1) K/uL Nucleated RBC % /100WBC Nucleated RBCs # K/uL INR Sodium 143 (136-145) mmol/L Potassium 3.7 (3.5-5.1) mmol/L Chloride 105 (98-107) mmol/L Carbon Dioxide 24.2 (21.0-32.0) mmol/L BUN 13 (7.0-18.0) mg/dL Creatinine 0.8 (0.6-1.0) mg/dL Est Cr Clr Drug Dosing 87.18 mL/min Estimated GFR (MDRD) > 60.0 ml/min Glucose 117 H (74-106) mg/dL Calcium 9.4 (8.5-10.1) mg/dL Total Bilirubin 0.2 (0.2-1.0) mg/dL AST 29 (15-37) IU/L ALT 39 (14-63) IU/L Alkaline Phosphatase 99 (46-116) U/L Total Protein 7.0 (6.4-8.2) g/dL Albumin 3.4 (3.4-5.0) g/dL Globulin 3.6 (2.6-4.0) g/dL Albumin/Globulin Ratio 0.9 (0.9-1.6) Urine Color RED Urine Appearance CLOUDY Urine pH 6.0 (5.0-8.0) Ur Specific [place] >= 1.030 (1.001-1.035) Urine Protein 30 H (NEGATIVE) mg/dL Urine Glucose (UA) NEGATIVE (NEGATIVE) mg/dL Urine Ketones NEGATIVE (NEGATIVE) mg/dL Urine Occult Blood LARGE H (NEGATIVE) Urine Nitrite NEGATIVE (NEGATIVE) Urine Bilirubin NEGATIVE (NEGATIVE) Urine Urobilinogen 0.2 (<2.0) EU/dL Ur Leukocyte Esterase NEGATIVE (NEGATIVE) Urine RBC TOO NUMEROUS TO CT H (0-2/HPF) Urine WBC 3-6 (0-5/HPF) Ur Epithelial Cells RARE (NONE-FEW) Amorphous Sediment HEAVY (NEGATIVE) Urine Bacteria RARE (NEGATIVE) Urinalysis Comment Blood Type Antibody Screen Result Diagrams: 01/05/19 16:35 01/05/19 16:35 *Q Meaningful Use (ADM) - VTE *Q VTE Pharmacological Contraindications *Q: Active Hemorrhage - VTE Risk Assess *Q Each Risk Factor Represents 1 Point: or , Less than 1 Month Total Score 1 Point Risk Factors: 1 Problem List Initiated/Reviewed/Updated: Yes Orders Last 24hrs: Active Orders 24 hr Category Date Time Status Patient Status [ADT] Routine ADT 01/05/19 18:44 Active EKG 12 Lead [EKG Documentation Completion] [RC] STAT Care 01/05/19 16:34 Active Intake and Output [RC] QSHIFT Care 01/05/19 18:47 Active Notify Provider Consults [RC] ASDIRECTED Care 01/05/19 17:52 Active Oxygen Therapy [RC] PRN Care 01/05/19 18:44 Active Pulse Oximetry [RC] PRN Care 01/05/19 18:47 Active Up With Assistance [RC] ASDIRECTED Care 01/05/19 18:44 Active VTE/DVT Education [RC] PER UNIT ROUTINE Care 01/05/19 18:44 Active Vital Signs [RC] Q4H Care 01/05/19 18:44 Active Consult to Physician [CONS] Stat Cons 01/05/19 17:52 Active Regular Diet [DIET] Diet 01/05/19 Dinner Active CBC WITH AUTO DIFF [HEME] DAILY Lab 01/06/19 05:00 Ordered CBC WITH AUTO DIFF [HEME] DAILY Lab 01/07/19 05:00 Ordered CBC WITH AUTO DIFF [HEME] DAILY Lab 01/08/19 05:00 Ordered Acetaminophen [Tylenol] Med 01/05/19 18:44 Active 650 mg PO Q4H PRN Ondansetron [Zofran ODT] Med 01/05/19 18:44 Active 4 mg PO Q6H PRN Sodium Chloride 0.9% [Saline Flush] Med 01/05/19 16:56 Active 10 ml FLUSH ASDIRECTED PRN Sodium Chloride 0.9% [Saline Flush] Med 01/05/19 16:56 Active 2.5 ml FLUSH ASDIRECTED PRN Saline Lock Insert [OM.PC] Stat Oth 01/05/19 16:56 Ordered Transfuse PRBC [Transfuse Red Blood Cells] [COMM] Stat Oth 01/05/19 18:51 Ordered Resuscitation Status Routine Resus Stat 01/05/19 18:44 Ordered Medication Orders Acetaminophen (Tylenol) 650 mg PO Q4H PRN PRN Reason: Pain (Mild 1-3)/fever Ondansetron HCl (Zofran Odt) 4 mg PO Q6H PRN PRN Reason: nausea, able to take PO Sodium Chloride (Saline Flush) 10 ml FLUSH ASDIRECTED PRN PRN Reason: Keep Vein Open Sodium Chloride (Saline Flush) 2.5 ml FLUSH ASDIRECTED PRN PRN Reason: Keep Vein Open Assessment/Plan Comment:: 33yo s/p on 12/05 and D&C for retained placenta on 12/19 complicated by septic pelvic thrombophlebitis presenting with acute symptomatic anemia due to vaginal bleeding - BP stable, tachycardic 120-140s - Afebrile, SPT improving, no signs of infection currently - Hgb 8.6, decreased from 10.1 on 01/02. Plt wnl - Admit to inpatient for symptomatic anemia. - Will transfuse 2u pRBCs, repeat CBC in AM, monitor bleeding closely - Hold lovenox at this time due to acute bleeding, plan to restart prophylactic dose at discharge - Repeat TVUS
[2019-01-06] MEDS ORDERED: Sodium Chloride 0.9% 1,000 ML IV SCH (06:15)
--- NOTE | 2019-01-06 07:16 | PCM.PN ---
- General Info Date of Service: 01/06/19 Subjective Update: Patient feeling well this AM. Vaginal bleeding is now minimal, did not change a pad overnight. Was able to ambulate without SOB and weakness. Tolerating PO and voiding. Functional Status: Reports: Tolerating Diet, Ambulating - Review of Systems General: Reports: No Symptoms HEENT: Reports: No Symptoms Pulmonary: Reports: No Symptoms Cardiovascular: Reports: No Symptoms Gastrointestinal: Reports: No Symptoms Genitourinary: Reports: No Symptoms Musculoskeletal: Reports: No Symptoms Neurological: Reports: No Symptoms Psychiatric: Reports: No Symptoms - Patient Data Vitals - Most Recent: Last Vital Signs Temp 37.4 C 01/06/19 03:38 Pulse 95 01/06/19 03:38 Resp 16 01/06/19 03:38 BP 110/69 01/06/19 03:38 Pulse Ox 97 01/06/19 03:38 Weight - Most Recent: 171 lb 12.8 oz I&O - Last 24 Hours: Intake & Output 01/05/19 01/06/19 01/06/19 22:59 06:59 14:59 Intake Total 13 1809 Output Total 200 Balance 13 1609 Lab Results Last 24 Hours: Laboratory Results - last 24 hr 01/05/19 01/05/19 01/05/19 Range/Units 15:21 16:35 16:35 WBC 9.73 (4.0-11.0) K/uL RBC 2.90 L (4.30-5.90) M/uL Hgb 8.6 L (12.0-16.0) g/dL Hct 26.9 L (36.0-46.0) % MCV 92.8 (80.0-98.0) fL MCH 29.7 (27.0-32.0) pg MCHC 32.0 (31.0-37.0) g/dL RDW Std Deviation 60.8 (28.0-62.0) fl RDW Coeff of Yocasta 18 H (11.0-15.0) % Plt Count 456 H (150-400) K/uL MPV 10.00 (7.40-12.00) fL Neut % (Auto) 76.6 (48.0-80.0) % Lymph % (Auto) 17.4 (16.0-40.0) % [place] % (Auto) 5.4 (0.0-15.0) % Eos % (Auto) 0.2 (0.0-7.0) % Baso % (Auto) 0.4 (0.0-1.5) % Neut # (Auto) 7.5 H (1.4-5.7) K/uL Lymph # (Auto) 1.7 (0.6-2.4) K/uL [place] # (Auto) 0.5 (0.0-0.8) K/uL Eos # (Auto) 0.0 (0.0-0.7) K/uL Baso # (Auto) 0.0 (0.0-0.1) K/uL Nucleated RBC % 0.0 /100WBC Nucleated RBCs # 0 K/uL INR 0.96 Sodium (136-145) mmol/L Potassium (3.5-5.1) mmol/L Chloride (98-107) mmol/L Carbon Dioxide (21.0-32.0) mmol/L BUN (7.0-18.0) mg/dL Creatinine (0.6-1.0) mg/dL Est Cr Clr Drug Dosing mL/min Estimated GFR (MDRD) ml/min Glucose (74-106) mg/dL Calcium (8.5-10.1) mg/dL Total Bilirubin (0.2-1.0) mg/dL AST (15-37) IU/L ALT (14-63) IU/L Alkaline Phosphatase (46-116) U/L Total Protein (6.4-8.2) g/dL Albumin (3.4-5.0) g/dL Globulin (2.6-4.0) g/dL Albumin/Globulin Ratio (0.9-1.6) Urine Color Urine Appearance Urine pH (5.0-8.0) Ur Specific [place] (1.001-1.035) Urine Protein (NEGATIVE) mg/dL Urine Glucose (UA) (NEGATIVE) mg/dL Urine Ketones (NEGATIVE) mg/dL Urine Occult Blood (NEGATIVE) Urine Nitrite (NEGATIVE) Urine Bilirubin (NEGATIVE) Urine Urobilinogen (<2.0) EU/dL Ur Leukocyte Esterase (NEGATIVE) Urine RBC (0-2/HPF) Urine WBC (0-5/HPF) Ur Epithelial Cells (NONE-FEW) Amorphous Sediment (NEGATIVE) Urine Bacteria (NEGATIVE) Urinalysis Comment Blood Type O POSITIVE Antibody Screen NEGATIVE Crossmatch See Detail 01/05/19 01/05/19 01/06/19 Range/Units 16:35 17:30 05:58 WBC 6.75 (4.0-11.0) K/uL RBC 3.02 L (4.30-5.90) M/uL Hgb 8.4 L (12.0-16.0) g/dL Hct 26.3 L (36.0-46.0) % MCV 87.1 (80.0-98.0) fL MCH 27.8 (27.0-32.0) pg MCHC 31.9 (31.0-37.0) g/dL RDW Std Deviation 66.5 H (28.0-62.0) fl RDW Coeff of [place] 21 H (11.0-15.0) % Plt Count 241 (150-400) K/uL MPV 9.70 (7.40-12.00) fL Neut % (Auto) 60.9 (48.0-80.0) % Lymph % (Auto) 29.8 (16.0-40.0) % [place] % (Auto) 8.3 (0.0-15.0) % Eos % (Auto) 0.7 (0.0-7.0) % Baso % (Auto) 0.3 (0.0-1.5) % Neut # (Auto) 4.1 (1.4-5.7) K/uL Lymph # (Auto) 2.0 (0.6-2.4) K/uL [place] # (Auto) 0.6 (0.0-0.8) K/uL Eos # (Auto) 0.1 (0.0-0.7) K/uL Baso # (Auto) 0.0 (0.0-0.1) K/uL Nucleated RBC % 0.0 /100WBC Nucleated RBCs # 0 K/uL INR Sodium 143 (136-145) mmol/L Potassium 3.7 (3.5-5.1) mmol/L Chloride 105 (98-107) mmol/L Carbon Dioxide 24.2 (21.0-32.0) mmol/L BUN 13 (7.0-18.0) mg/dL Creatinine 0.8 (0.6-1.0) mg/dL Est Cr Clr Drug Dosing 87.18 mL/min Estimated GFR (MDRD) > 60.0 ml/min Glucose 117 H (74-106) mg/dL Calcium 9.4 (8.5-10.1) mg/dL Total Bilirubin 0.2 (0.2-1.0) mg/dL AST 29 (15-37) IU/L ALT 39 (14-63) IU/L Alkaline Phosphatase 99 (46-116) U/L Total Protein 7.0 (6.4-8.2) g/dL Albumin 3.4 (3.4-5.0) g/dL Globulin 3.6 (2.6-4.0) g/dL Albumin/Globulin Ratio 0.9 (0.9-1.6) Urine Color RED Urine Appearance CLOUDY Urine pH 6.0 (5.0-8.0) Ur Specific [place] >= 1.030 (1.001-1.035) Urine Protein 30 H (NEGATIVE) mg/dL Urine Glucose (UA) NEGATIVE (NEGATIVE) mg/dL Urine Ketones NEGATIVE (NEGATIVE) mg/dL Urine Occult Blood LARGE H (NEGATIVE) Urine Nitrite NEGATIVE (NEGATIVE) Urine Bilirubin NEGATIVE (NEGATIVE) Urine Urobilinogen 0.2 (<2.0) EU/dL Ur Leukocyte Esterase NEGATIVE (NEGATIVE) Urine RBC TOO NUMEROUS TO CT H (0-2/HPF) Urine WBC 3-6 (0-5/HPF) Ur Epithelial Cells RARE (NONE-FEW) Amorphous Sediment HEAVY (NEGATIVE) Urine Bacteria RARE (NEGATIVE) Urinalysis Comment Blood Type Antibody Screen Crossmatch Med Orders - Current: Current Medications Acetaminophen (Tylenol) 650 mg PO Q4H PRN PRN Reason: Pain (Mild 1-3)/fever Sodium Chloride (Normal Saline) 1,000 mls @ 125 mls/hr IV ASDIRECTED TYRON Ondansetron HCl (Zofran Odt) 4 mg PO Q6H PRN PRN Reason: nausea, able to take PO Sodium Chloride (Saline Flush) 10 ml FLUSH ASDIRECTED PRN PRN Reason: Keep Vein Open Sodium Chloride (Saline Flush) 2.5 ml FLUSH ASDIRECTED PRN PRN Reason: Keep Vein Open Discontinued Medications Sodium Chloride (Normal Saline) 1,000 mls @ 999 mls/hr IV STAT ONE Stop: 01/05/19 17:56 Last Admin: 01/05/19 17:43 Dose: 999 mls/hr - Exam General: Alert, Oriented, No Acute Distress Lungs: Normal Respiratory Effort GI/Abdominal Exam: Soft, Non-Tender, No Distention (Female) Exam: Vaginal Bleeding (light. Uterus not enlarged. ). No: Uterine Tenderness Extremities: Normal Inspection, Non-Tender, No Pedal Edema Psy/Mental Status: Alert, Normal Affect, Normal Mood - Problem List Review Problem List Initiated/Reviewed/Updated: Yes - My Orders Last 24 Hours: My Active Orders 01/05/19 18:44 Patient Status [ADT] Routine Oxygen Therapy [RC] PRN Up With Assistance [RC] ASDIRECTED VTE/DVT Education [RC] PER UNIT ROUTINE Vital Signs [RC] Q4H Acetaminophen [Tylenol] 650 mg PO Q4H PRN Ondansetron [Zofran ODT] 4 mg PO Q6H PRN Resuscitation Status Routine 01/05/19 18:47 Intake and Output [RC] Q12H Pulse Oximetry [RC] PRN 01/05/19 18:51 Transfuse PRBC [Transfuse Red Blood Cells] [COMM] Stat 01/05/19 19:45 Transvaginal Non OB [US] Routine 01/05/19 Dinner Regular Diet [DIET] 01/06/19 06:15 Sodium Chloride 0.9% [Normal Saline] 1,000 ml IV ASDIRECTED 01/06/19 06:57 Ready for Discharge [RC] PER UNIT ROUTINE 01/07/19 05:00 CBC WITH AUTO DIFF [HEME] DAILY 01/08/19 05:00 CBC WITH AUTO DIFF [HEME] DAILY - Assessment Assessment:: 33yo s/p on 12/05 and D&C for retained placenta on 12/19 complicated by septic pelvic thrombophlebitis presenting with acute symptomatic anemia due to vaginal bleeding. Symptoms resolved after 2u pRBCs - Plan Plan:: - BP stable, HR 95 currently. O2 sat 95% on RA - Vaginal bleeding now light, symptoms of anemia resolved - s/p 2u pRBCs. Hgb 8.4 this AM, inappropriate rise likely due to hemodilution - Afebrile, SPT improving, no signs of infection currently - restart prophylactic prophylactic lovenox 40mg qD tomorrow Stable for discharge home. Follow up as scheduled with Dr.Solberg Butterfield, repeat CBC then
== END 2019-01-06 08:50 | disposition home or self-care (01) | DRG 663 ==
LOC: MW.ED 16:25 → MW.MS 18:55
PROVIDERS: ADMIT Obstetrics & Gynecology; ATTEND Obstetrics & Gynecology
PROC: 30233N1 Transfusion of Nonautologous Red Blood Cells into Peripheral Vein, Percutaneous Approach (ICD-10-PCS; principal; 2019-01-05)
DX: D64.9 Anemia, unspecified (principal); E66.9 Obesity, unspecified; N93.9 Abnormal uterine and vaginal bleeding, unspecified; Z88.2 Allergy status to sulfonamides; Z79.899 Other long term (current) drug therapy; Z68.29 Body mass index [BMI] 29.0-29.9, adult
CPT/HCPCS: 36415; 36430; 71046; 71046-26; 80053; 81001; 85025; 85610; 86850; 86900; 86901; 86920; 86921; 86922; 93005; 96360; 99285-25; J7040; P9016